=== PATIENT | male | born 1935 | race Caucasian/White ===

== ENCOUNTER 2018-05-12 05:18 | Observation (INO) | payer MEDICARE, OTHER ==
[2018-05-12 05:45] LABS: #Basophils 0.1 thou/uL (0.0-0.2); #Eosinphils 0.2 thou/uL (0.0-0.7); #Lymphocytes 2.5 thou/uL (1.20-3.40); #Monocytes 1.1 thou/uL (0.11-0.59); #Neutrophils 4.1 thou/uL (1.40-6.50); %Basophils 0.7 % (0.0-1.0); %Eosinophils 2.8 % (0.0-10.0); %Lymphocytes 31.7 % (21.0-51.0); %Monocytes 13.8 % (0.0-10.0); Hemoglobin 13.8 g/dL (14.0-18.0); Mean Corpuscular HGB CONC 33.2 g/dL (32.0-36.0); Mean Corpuscular Hemoglobin 34.5 pg (27.0-31.0); Mean Platelet Volume 7.7 fL (7.4-10.4); Platelet Count 160 thou/uL (130-400); RBC Distribution Width 12.3 % (11.5-14.5)
[2018-05-12 06:11] LABS: ALT (SGPT) 23 U/L (8-55); AST (SGOT) 25 U/L (5-34); Alkaline Phosphatase 149 U/L (40-150); Anion Gap 12 mmol/L (10-20); BUN (Urea Nitrogen) 23 mg/dL (8.4-25.7); Bilirubin, Total 0.5 mg/dL (0.2-1.2); Calc. Creatinine Clearance 0 mL/min (70-130); Calcium 9.3 mg/dL (7.8-10.44); Carbon Dioxide 35 mmol/L (23-31); Chloride 98 mmol/L (98-107); Estimated GFR-MDRD 14; Globulin 3.7 g/dL (2.4-3.5); Glucose 111 mg/dL (83-110); Potassium 4.2 mmol/L (3.5-5.1); Protein, Total 7.7 g/dL (5.8-8.1); Sodium 141 mmol/L (136-145)
[2018-05-12 06:28] LABS: CKMB 1.4 ng/mL (0-6.6)
[2018-05-12] MEDS ORDERED: Aspirin 325 MG TAB ONE (06:38)
[2018-05-12] MEDS ORDERED: Ondansetron PF 4 MG/2 ML Vial ONE (06:38)
--- NOTE | 2018-05-12 07:52 | RAD ---
FExam: Chest one view HISTORY:Chest pain Comparison: 08/27/2015 FINDINGS: Cardiac silhouette:Enlarged. Atherosclerosis of the aorta. Sternotomy wires are redemonstrated. Pulmonary vessels: Slightly prominent Costophrenic angles: Persistent blunting of the left costophrenic angle LUNGS: Patchy opacity in the left lung base. Pneumothorax: None Osseous abnormalities: None IMPRESSION: 1. Cardiomegaly. Atherosclerosis. 2. Presumed chronic left-sided pleural effusion with adjacent parenchymal changes.
[2018-05-12] MEDS ORDERED: Acetaminophen 325 MG TAB PO PRN ×2 (08:25→10:14)
[2018-05-12] MEDS ORDERED: Ondansetron PF 4 MG/2 ML Vial IVP PRN (08:25)
[2018-05-12] MEDS ORDERED: Ondansetron ODT 4 MG TAB PO PRN (08:25)
[2018-05-12 08:34] VITALS: BMI 31.9
[2018-05-12 09:41] LABS: Troponin I 0.069 ng/mL (< 0.028)
[2018-05-12] MEDS ORDERED: Dextrose 5% in Water 1,000 ML IV PRN (10:14)
[2018-05-12] MEDS ORDERED: Guaifenesin DM 100-10/5 ML UDCUP PO PRN (10:14)
[2018-05-12] MEDS ORDERED: Dextrose 50% Abboject 50 ML SYRINGE ONE (10:14)
[2018-05-12] MEDS ORDERED: HumaLOG 300 UNITS/3 ML VIAL SC PRN ×2 (10:14→11:03)
[2018-05-12] MEDS ORDERED: Dextrose 50% Abboject 50 ML SYRINGE SLOW IVP PRN (10:14)
[2018-05-12] MEDS ORDERED: Dextrose 5 % And 0.9 % NaCl 1,000 ML IV SCH (10:15)
[2018-05-12 11:49] VITALS: BP 159/69; TEMP 98.5
[2018-05-12] MEDS ORDERED: Sevelamer Carbonate 800 MG TAB PO SCH (12:00)
[2018-05-12] MEDS ORDERED: Nitroglycerin 2% Ointment 1 INCH/1 GM Packet TOP SCH (14:00)
--- NOTE | 2018-05-12 14:13 | SS ---
DATE OF ADMISSION: 05/12/2018 DATE OF DISCHARGE: REASON FOR ADMISSION: Chest pain. HISTORY OF PRESENTING ILLNESS: The patient gives history of having left-sided chest pain from last 2 days. These pains last for few seconds and have come nearly more than 10 times. As this was persistently coming off and on, the patient got concerned and hence came to emergency room. He initially thought it could be GERD, but the frequency worsened and hence came to emergency room. The patient follows up with Dr. Molina. Last stress test was more than 4 years ago. No complaints of palpitations, PND, or orthopnea. No cough or sputum production. No fever. He has had hemodialysis yesterday full session. PAST MEDICAL AND SURGICAL HISTORY: History of prior CVA with legal blindness. He cannot see in the left half of both eyes. Left hemianopsia. Sleep apnea on CPAP, hypertension, atrial fibrillation. End-stage renal disease on hemodialysis on Wednesday, Wednesday, and Wednesday. Right upper extremity fistula/dialysis access procedures, history of CHF with likely systolic dysfunction, peripheral neuropathy, dyslipidemia, CABG for 5-vessel disease done in the year 1999 in [place]. He has had 3 stents prior to having CABG. The patient has not had any cardiac catheterization after CABG. CURRENT MEDICATIONS: 1. Aspirin 81 mg p.o. daily. 2. Eliquis 2.5 mg p.o. twice daily. 3. Folic acid 0.4 mg p.o. daily. 4. Vitamin D3 of 2000 units p.o. daily. 5. Tresiba 60 units subcu q.p.m. 6. Pravastatin 80 mg p.o. at bedtime. 7. Sevelamer 800 mg p.o. 3 times daily. ALLERGIES: NO KNOWN DRUG ALLERGIES. PERSONAL HISTORY: Does not abuse alcohol or drugs. No history of smoking. Lives with his . Ambulates by himself. FAMILY HISTORY: Mother at the age of 46 years likely from cervical cancer and its complications. Father of brain cancer and its complications at the age of 67. CODE STATUS: Full. Power of assistant prosecuting attorney is his . REVIEW OF SYSTEMS: CONSTITUTIONAL: Negative for weight loss or gain, ability to conduct usual activities. SKIN: Negative for rash, itching. EYES: Negative for double vision, pain. ENT/MOUTH: Negative for nose bleeding, neck stiffness, pain, tenderness. CARDIOVASCULAR: Negative for palpitations, dyspnea on exertion, orthopnea. RESPIRATORY: Negative for shortness of breath, wheezing, cough, hemoptysis, fever or night sweats. GASTROINTESTINAL: Negative for poor appetite, abdominal pain, heartburn, nausea , vomiting, constipation, or diarrhea. GENITOURINARY: Negative for urgency, frequency, dysuria, nocturia. MUSCULOSKELETAL: Negative for pain, swelling. NEUROLOGIC/PSYCHIATRIC: Negative for anxiety, depression. ALLERGY/IMMUNOLOGIC: Negative for skin rash, bleeding tendency. PHYSICAL EXAMINATION: GENERAL: The patient is an 83-year-old male, who is currently not in any distress and is chest pain-free. VITAL SIGNS: Blood pressure 134/82, pulse 86 per minute, respiratory rate 18 per minute, temperature 98.3 degrees Fahrenheit, saturating 93% on room air. NECK: Supple. No elevated JVD. HEENT: Eyes; extraocular muscles intact. Pupils reacting to light. Oral cavity, mucous membranes are moist. No exudates or congestion. CARDIOVASCULAR SYSTEM: S1 and S2 heard. Irregular rhythm. RESPIRATORY SYSTEM: Air entry 1+ bilateral. No rales or rhonchi. ABDOMEN: Soft. Bowel sounds heard. No tenderness, rigidity, or guarding. EXTREMITIES: No peripheral edema or calf tenderness. VASCULAR SYSTEM: Peripheral pulses 1+ bilateral. No ischemic ulcerations or gangrene. CENTRAL NERVOUS SYSTEM: No gross focal deficits noted. The patient is alert, awake, and oriented well. The patient has left hemianopsia. PSYCHIATRIC SYSTEM: The patient's mood is euthymic. No hallucinations or delusions. LABORATORY DATA: EKG done shows atrial fibrillation at 86 beats per minute. There is nonspecific ST-T wave changes. White count of 8, H and H of 13 and 41, platelet count 160, MCV is 104 with 51% neutrophils. BUN 23, creatinine 4.1, serum bicarb 35. Troponin I is indeterminate, peaking up to 0.07. Albumin is 4.0. Chest x- ray done shows cardiomegaly with chronic left-sided pleural effusion. CLINICAL IMPRESSION AND PLAN: The patient will be under observation on telemetry for the chest pain to rule out acute coronary syndrome. The patient has had prior history of coronary artery bypass grafting for 5-vessel disease in the year 1999. His last stress test was more than 4 years back. We will obtain a nuclear stress test. The patient's indeterminate troponin is due to his end-stage kidney disease. He is currently chest pain-free at present. We will continue him on low-dose aspirin along with Eliquis, sevelamer, folic acid as before. The patient had a drop in his fingerstick glucose and has been placed on D5 normal saline until he finishes his stress test. Once he is done with stress test, he will be given a full meal. Echo with 2D Doppler for LV function will be obtained in view of his history of CHF. The patient is not clear what his ejection fraction is. He follows up regularly at Jesse's office. If the nuclear stress test is normal, will be discharging the patient today and he needs to follow up with Dr. Molina in 2 to 3 weeks. His next scheduled dialysis is tomorrow. If patient ends up staying here, we will consult Dr. Sanchez for the same. Addendum: stress test showed large scar over apex likely from prior insult, no reversible ischemia. I discussed his findings with in his office and he will f/u with him shortly. DC pt home. No arrhythmias except baseline afib was seen on telemetry. He likely will need his pacemaker interrogation when he f/u with . Job ID: [id number] [facility]
--- NOTE | 2018-05-12 15:30 | NM ---
NUCLEAR MEDICINE CARDIAC PERFUSION EXAMINATION WITH EJECTION FRACTION: HISTORY: 83-year-old male with chest pain. History of coronary artery disease status post CABG. TECHNIQUE: A single day nuclear medicine cardiac perfusion examination was performed. Rest images were obtained using 9 mCi of technetium-99m sestamibi. Stress images were obtained using 30 mCi of technetium-99m s estamibi and Adenosine. FINDINGS: There is a large size, severe intensity, fixed perfusion defect at the cardiac apex, consistent with a remote infarction. No obvious reversibility is seen. Gated images show apical dyskinesis with an ejection fraction of 44%. EDV: 130 mL LHR: 0.3 TID: 0.9 IMPRESSION: 1. No evidence of ischemia. 2. Remote infarction involving the anterior wall/apex. POS: TPC
[2018-05-12] MEDS ORDERED: ADENOSINE 60 MG/20 ML VIAL ONE (16:22)
[2018-05-12] MEDS ORDERED: Atorvastatin Calcium 20 MG TAB PO SCH (21:00)
[2018-05-12] MEDS ORDERED: Apixaban 2.5 MG TAB PO SCH (21:00)
[2018-05-12] MEDS ORDERED: Non-Formulary Item 1 EACH (Pravastatin Sodium [Pravastatin Sodium] 80 MG) PO SCH (21:00)
[2018-05-13] MEDS ORDERED: Non-Formulary Item 1 EACH (Folic Acid [Folic Acid] 0.4 MG) PO SCH (09:00)
[2018-05-13] MEDS ORDERED: Folic Acid 1 MG TAB PO SCH (09:00)
[2018-05-13] MEDS ORDERED: Aspirin 81 mg Enteric Coated Tablet PO SCH (09:00)
--- NOTE | 2018-05-17 13:18 | STRESS ---
Acquisition Time: 2018-05-12 13:18:42 Total Exercise Time: 00:04:00 Test Indications: CHEST PAIN Medications: Protocol: ADENOSINE Max HR: 104 BPM 75% of Pred: 138 BPM Max BP: 128/076 mmHG Max Work Load: 1.0 METS RESTING ECG: ATRIAL FIBRILLATION AT 76 BPM WITH POOR R-WAVE PROGRESSION, LOW VOLTAGE, OLD SEPTAL NH, AND RARE PVC'S SYMPTOMS: NONE NORMAL BP RESPONSE ECTOPY: RARE PVC'S ECG STRESS: NO SIGNIFICANT CHANGES INTERPRETATION: INDETERMINATE ECG/AWAIT NUCLEAR IMAGES FOR DEFINITIVE DIAGNOSIS Confirmed by ULISES PURDY ([id number]) on 05/17/2018 1:18:00 PM Referred By: MD Evaristo JO Confirmed By:ULISES PURDY
== END 2018-05-12 16:15 | disposition home or self-care (01) ==
LOC: ERS 05:18 → 2SW 08:07
PROVIDERS: ADMIT Internal Medicine; ATTEND Internal Medicine
DX: R07.9 Chest pain, unspecified (principal); I69.398 Other sequelae of cerebral infarction; H53.47 Heteronymous bilateral field defects; G47.30 Sleep apnea, unspecified; I48.91 Unspecified atrial fibrillation; E11.42 Type 2 diabetes mellitus with diabetic polyneuropathy; I25.10 Atherosclerotic heart disease of native coronary artery without angina pectoris; I13.2 Hypertensive heart and chronic kidney disease with heart failure and with stage 5 chronic kidney disease, or end stage renal disease; E11.22 Type 2 diabetes mellitus with diabetic chronic kidney disease; N18.6 End stage renal disease; I50.9 Heart failure, unspecified; I70.0 Atherosclerosis of aorta; Z79.01 Long term (current) use of anticoagulants; Z79.82 Long term (current) use of aspirin; Z79.899 Other long term (current) drug therapy; Z79.4 Long term (current) use of insulin; Z95.1 Presence of aortocoronary bypass graft; Z95.5 Presence of coronary angioplasty implant and graft; Z99.2 Dependence on renal dialysis; Z99.89 Dependence on other enabling machines and devices
CPT/HCPCS: 71045; 78452; 80053; 82553; 82962; 84484 ×2; 85025; 93005; 93017; 96374; 99285; A9500; 36415; 36416; J0153; J2405

== ENCOUNTER 2019-02-26 17:36 | Inpatient (IN) | payer MEDICARE, OTHER ==
[2019-02-26 18:21] LABS: Hemoglobin 12.7 g/dL (14.0-18.0); Mean Platelet Volume 8.5 fL (7.4-10.4); Platelet Count 133 thou/uL (130-400); Red Blood Cell (RBC) Count 3.62 mill/uL (4.70-6.10)
--- NOTE | 2019-02-26 18:24 | RAD ---
RADIOGRAPH CHEST 1 VIEW: DATE: 02/26/2019 TIME: 5:46 PM HISTORY: 83-year-old male with dyspnea COMPARISON: 05/12/2018 FINDINGS: Thickening of left pleural stripe and significant blunting of left lateral costophrenic angle, unchan ged. Adjacent pulmonary scarring at left mid, lower, and mid-upper lung zones. Sternotomy wires. Diffusely prominent interstitial markings bilaterally. No new consolidation or pneumothorax. No interval change. IMPRESSION: 1) chronic left pleural effusion or left pleural thickening, and extensive adjacent left pulmonary sc arring. 2) previous open-heart surgery. 3) no acute consolidation or pulmonary edema
[2019-02-26 18:39] LABS: #Basophils 0.1 thou/uL (0.0-0.2); #Eosinphils 0.1 thou/uL (0.0-0.7); #Lymphocytes 1.3 thou/uL (1.20-3.40); #Neutrophils 4.6 thou/uL (1.40-6.50); %Basophils 0.8 % (0.0-1.0); %Lymphocytes 17.9 % (21.0-51.0); %Monocytes 14.2 % (0.0-10.0); %Neutrophils 66.1 % (42.0-75.0); MDiff Complete? YES; Macrocytosis SLIGHT = 6-15 cells (100X) (0-5/hpf); Mean Corpuscular HGB CONC 33.2 g/dL (32.0-36.0); Mean Corpuscular Hemoglobin 35.1 pg (27.0-31.0); RBC Distribution Width 12.1 % (11.5-14.5); Rouleaux Formation SLIGHT = 1-5 cells (100X) (None Seen)
[2019-02-26 18:42] LABS: ALT (SGPT) 28 U/L (8-55); AST (SGOT) 38 U/L (5-34); Albumin 3.7 g/dL (3.4-4.8); Alkaline Phosphatase 138 U/L (40-110); Anion Gap 17 mmol/L (10-20); BUN (Urea Nitrogen) 47 mg/dL (8.4-25.7); Bilirubin, Total 0.5 mg/dL (0.2-1.2); Calc. Creatinine Clearance 0 mL/min (70-130); Calcium 9.3 mg/dL (7.8-10.44); Carbon Dioxide 20 mmol/L (23-31); Chloride 104 mmol/L (98-107); Estimated GFR-MDRD 9; Globulin 3.7 g/dL (2.4-3.5); Glucose 136 mg/dL (83-110); Potassium 4.4 mmol/L (3.5-5.1); Protein, Total 7.4 g/dL (5.8-8.1); Sodium 137 mmol/L (136-145)
[2019-02-26 19:04] LABS: CKMB 1.9 ng/mL (0-6.6)
[2019-02-26] MEDS ORDERED: Oseltamivir 75 MG CAP PO SCH (20:15)
[2019-02-26] MEDS ORDERED: Aspirin Chewable 81 MG TAB ONE (20:22)
[2019-02-26 21:22] VITALS: BMI 32.9
[2019-02-26] MEDS ORDERED: Ondansetron PF 4 MG/2 ML Vial IVP PRN (22:00)
[2019-02-26] MEDS ORDERED: Bisacodyl 5 MG TAB PO PRN (22:00)
[2019-02-26] MEDS ORDERED: Acetaminophen 325 MG TAB PO PRN (22:00)
[2019-02-26] MEDS ORDERED: Dextrose 5% in Water 1,000 ML IV PRN (22:02)
[2019-02-26] MEDS ORDERED: Dextrose 50% Abboject 50 ML SYRINGE SLOW IVP PRN (22:02)
--- NOTE | 2019-02-26 22:52 | HP ---
PRIMARY CARE PROVIDER: Presley Lanier MD CHIEF COMPLAINT: Cough. HISTORY OF PRESENT ILLNESS: Mr. Rivas is a pleasant 83-year-old gentleman, who was seen at [facility] on February 26, 2019. He has end-stage renal disease and has hemodialysis Wednesday, Wednesday, and Wednesday. He also received the influenza vaccine this year. Over the last 2 days, he has had cough with wheezing, no sputum. He also reports shortness of breath with exertion. He also reports decreased appetite. He denies any body aches or headache. He denies any chest pain or palpitations. He denies any nausea, vomiting. He presented to the emergency room because of above symptoms. REVIEW OF SYSTEMS: All systems were reviewed and found to be negative except for the pertinent positives mentioned above. PAST MEDICAL HISTORY: Atrial fibrillation, obstructive sleep apnea syndrome, on noninvasive positive pressure ventilation therapy; coronary artery disease, cerebrovascular accident, transient ischemic attack, peripheral neuropathy, hypertension, diabetes mellitus, insulin dependent, and end-stage renal disease on hemodialysis Wednesday, Wednesday, and Wednesday. PAST SURGICAL HISTORY: Dialysis shunt and coronary artery bypass surgery. SOCIAL HISTORY: No history of tobacco use, alcohol use, or recreational drug use. FAMILY HISTORY: No family history of premature coronary artery disease. CODE STATUS: I discussed his code status. He is full code. ALLERGIES: NO KNOWN DRUG ALLERGIES. CURRENT MEDICATIONS: 1. Aspirin 81 mg daily. 2. Eliquis 2.5 mg 2 times a day. 3. Levothyroxine 25 mcg daily. 4. Humalog insulin, Tresiba insulin, and folic acid 1 mg daily. PHYSICAL EXAMINATION: GENERAL: On examination, Mr. Rivas is awake and alert, not in acute distress. VITAL SIGNS: Blood pressure is 172/93, pulse 100, respiratory rate 24, and oxygen saturation 97% on room air. T-max in the emergency room was 100.8 degrees Fahrenheit. EYES: No scleral icterus, no conjunctival pallor. ENT: Moist mucosal membranes. No oropharyngeal erythema or exudates. NECK: Supple, nontender, trachea is midline. RESPIRATORY: Accessory muscles of breathing are not active. Chest wall movements are symmetric bilaterally. Lungs are clear to auscultation without wheeze, rhonchi, or crepitations. CARDIOVASCULAR: S1 and S2 are heard, regular. Peripheral pulses palpable. ABDOMEN: Soft, nontender, bowel sounds are heard. NEUROLOGIC: Cranial nerves 2 through 12 are intact. MUSCULOSKELETAL: Power is 5/5 in all 4 extremities. SKIN: No rashes or subcutaneous nodules. LYMPHATIC: No cervical lymphadenopathy. PSYCHIATRIC: Normal mood, normal affect, the patient is oriented to person, place, and time. LABORATORY DATA: Mr. Rivas's labs and investigations were reviewed. He has normal white count, macrocytic anemia with hemoglobin 12.7, normal platelet count, normal sodium, normal potassium, elevated blood urea nitrogen of 47, elevated creatinine of 6.07, indeterminate troponin I of 0.140 and elevated BNP of 467.1. AST is elevated at 38 and alkaline phosphatase is elevated at 138. Influenza screen is positive for influenza A antigen. ASSESSMENT AND PLAN: Mr. Rivas is a pleasant 83-year-old gentleman, who was seen at [facility] on February 26, 2019. His problem list includes: 1. Sepsis: Mr. Rivas is presenting with sepsis secondary to influenza infection. He will be admitted to the hospital for further management. 2. Influenza A infection: The patient has been started on Tamiflu, which I will continue. 3. End-stage renal disease, on dialysis: We will consult Nephrology Service for maintenance dialysis. 4. Diabetes mellitus: We will continue insulin, start Accu-Cheks, and insulin sliding scale. 5. Atrial fibrillation: Continue Eliquis. Many thanks for allowing me to participate in your patient's care. Please feel free to contact me with any questions or concerns. LEVEL OF RISK: Moderate. LEVEL OF COMPLEXITY: Moderate. Job ID: [id number]
[2019-02-27 00:54] LABS: Troponin I 0.156 ng/mL (< 0.028)
[2019-02-27 04:21] LABS: Bilirubin Negative (Negative); Blood, Urine 1+ (Negative); Clarity Clear (Clear); Glucose, Urine (Dipstick) 200 mg/dL (Negative); Leukocyte Negative Leu/uL (Negative); Nitrite Negative (Negative); Protein, Urine (Dipstick) 100 mg/dL (Neg-Trace); Squamous Epithelial 0-3 HPF (0-3); Urobilinogen Normal mg/dL (Less than 2); WBC/HPF 0-3 HPF (0-3)
[2019-02-27 04:28] LABS: Bacteria/HPF Rare-Few HPF (None Seen)
[2019-02-27 05:27] LABS: Anion Gap 17 mmol/L (10-20); BUN (Urea Nitrogen) 50 mg/dL (8.4-25.7); Band 6 % (5-11); Calc. Creatinine Clearance 13 mL/min (70-130); Calcium 8.6 mg/dL (7.8-10.44); Carbon Dioxide 19 mmol/L (23-31); Chloride 105 mmol/L (98-107); Estimated GFR-MDRD 9; Glucose 164 mg/dL (83-110); Hemoglobin 11.7 g/dL (14.0-18.0); Lymphocytes 23 % (21-51); MDiff Complete? YES; Mean Corpuscular HGB CONC 32.5 g/dL (32.0-36.0); Mean Corpuscular Hemoglobin 34.3 pg (27.0-31.0); Mean Platelet Volume 8.1 fL (7.4-10.4); Monocytes 12 % (0-10); Neutrophil 59 % (42-75); Platelet Count 124 thou/uL (130-400); Potassium 4.6 mmol/L (3.5-5.1); RBC Distribution Width 12.2 % (11.5-14.5); Red Blood Cell (RBC) Count 3.41 mill/uL (4.70-6.10); Sodium 136 mmol/L (136-145); White Blood Cell (WBC) Count 7.6 thou/uL (4.8-10.8)
[2019-02-27] MEDS ORDERED: Nitroglycerin 0.4 MG TAB (25 Tab Bottle) PO PRN (07:20)
[2019-02-27] MEDS ORDERED: Folic Acid 1 MG TAB PO SCH (09:00)
[2019-02-27] MEDS ORDERED: Oseltamivir 75 MG CAP PO SCH (09:00)
--- NOTE | 2019-02-27 09:21 | CON ---
DATE OF CONSULTATION: HISTORY OF PRESENT ILLNESS: Mr. Rivas is an 83-year-old white male with ESRD and on maintenance hemodialysis, was admitted for persistent cough. He was found to have a flu infection. He was also noted to have a mildly elevated troponin I; for that reason, was admitted for further observation. We are consulted for management of his ESRD. REVIEW OF SYSTEMS: Positive for a cough, question evgeny of fever. No nausea. No vomiting. He has some mild shortness of breath on exertion. Appetite and energy level are decreased. No syncopal episode. No nausea. No vomiting. No diarrhea. No constipation. No productive cough. No chest pain. No palpitation. PAST MEDICAL HISTORY: Chronic AFib; obstructive sleep syndrome, on CPAP; coronary artery disease; ESRD, on maintenance hemodialysis, status post CVA; peripheral neuropathy; hypertension; type 2 diabetes mellitus. PAST SURGICAL HISTORY: The patient is status post AV fistula placement, status post cuffed hemodialysis catheter placement, status post cardiac cath, status post skin graft, status post CABG, status post right shoulder surgery for dislocated right shoulder joint, status post bilateral cataract surgery, and status post colonoscopy. 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 No history of smoking. Education, high school. Status post multiple blood transfusion. No alcohol. No IV drug abuse. FAMILY HISTORY: No family history of ESRD. ALLERGIES: NONE. TRAUMA: Status post right shoulder dislocation. IMMUNIZATION: Up-to-date. HOSPITALIZATIONS: Please see past medical history. PHYSICAL EXAMINATION: VITAL SIGNS: Blood pressure 121/66, heart rate 97, respiratory rate 14, temperature 98.5, and pulse ox 91%. GENERAL: The patient is awake, alert, comfortable, not in overt distress. SKIN: Adequate turgor. HEENT: He has pinkish conjunctivae. Anicteric sclerae. NECK: No neck mass. No carotid bruits. No JVD. CHEST: No deformities. LUNGS: Decreased breath sounds. HEART: Normal sinus rhythm. No murmur. No gallops. No rubs. ABDOMEN: Globular, soft, and nontender. No masses. EXTREMITIES: No edema. No deformities. NEUROLOGICAL: Moving all extremities. No tremors. No asterixis. No ataxia. MEDICATIONS: Medications of February 27, 2019; 1. Eliquis 2.5 mg p.o. b.i.d. 2. Aspirin 81 mg tab/day. 3. Atorvastatin 80 mg at bedtime. 4. Vitamin D 2000 International Units daily. 5. Fish oil 2 g p.o. daily. 6. Folic acid 1 mg daily. 7. DuoNeb q.4 p.r.n. 8. Insulin glargine 40 units subcu at bedtime. 9. Tamiflu 75 mg p.o. b.i.d. LABORATORY DATA: Laboratories of February 27, 2019, showed a white count of 7.6, hemoglobin of 11.7, sodium of 136, potassium of 4.6, chloride of 105, carbon dioxide of 19, BUN of 50, creatinine of 6.29, calcium of 8.6, and troponin I 0.156. DIAGNOSTIC DATA: Chest x-ray of February 26, 2019, showed chronic left pleural effusion, no pulmonary edema. ASSESSMENT/PLAN: 1. Influenza infection - currently on Tamiflu. Continue supportive care. The patient did receive a flu vaccine a few months ago. 2. End-stage renal disease, stable. We will continue current hemodialysis regimen. Fluid removal as tolerated by the patient. Review of his last kt/V suggests he is adequately dialyzed with the current dialysis regimen. 3. Type 2 diabetes mellitus. Continue current insulin regimen. Job ID: [id number] [facility]
[2019-02-27] MEDS ORDERED: Budesonide 0.5 MG/2 ML NEB INH SCH (09:30)
[2019-02-27] MEDS ORDERED: Folic Acid/Vit B Comp W-C PO SCH (10:15)
[2019-02-27 10:43] LABS: ALV-art Gradient 65.665 (0-20); Actual Bicarbonate (HCO3a) 27.2 mEq/L (22-28); Base Excess (BEa) 2.5 mEq/L (-2.0 to +3.0); CO2 Tension 42.3 mmHg (35.0-45.0); Calcium, Ionized 1.12 mmol/L (1.12-1.30); Carboxyhemoglobin (COHb) 1.3 gm% (0.0-3.0); O2 Tension (PaO2) 81.1 mmHg (> 60.0); Potassium - ABG Lab 3.88 mmol/L (3.70-5.30); Puncture Site RRA; pH, Arterial 7.43 (7.35-7.45)
[2019-02-27] MEDS: Ipratropium Bromide 2.5 ml Neb NEB SCH ×4 (10:46→22:29)
--- NOTE | 2019-02-27 10:47 | PDOC.PULCN ---
Pulmonology Consult: HPI - Date of Consult Date: 02/27/19 Time: 10:40 - Consult Details Reason for Consult: O2 desaturation acute hypoxic respiratory failure reuiring bipap Requesting Physician: Dr. Epps - History of Present Illness HPI: ARMIDA DILLON is a 83 year-old M with Afib, CHRISTOPHER, ESRD on HD, IDDM2, CAD, CVA who presented to the ER for cough, SOB. He was found to be flu A and admitted for sepsis 2/2 influenza. This morning he was found to have low peripheral O2 saturation in the 80s and was sent over to dialysis to alleviate fluid overload. He started becoming tachypneic and RT was called and he was started on BiPap. Patient is breathing easy in the room on Bipap and reports he feels much better. Denies other current symptoms at this time. Pulmonology Consult: ROS - Review of Systems ROS unobtainable: other Cardiovascular: negative: chest pain, palpitations Respiratory: short of breath. negative: cough, productive cough, wheezing Pulmonology Consult: H Source: patient, nurse Past Medical History: Afib, CHRISTOPHER on noninvasive PPV, CAD, CVA, TIA, peripheral neuropathy, HTN, DM2 on insulin, ESRD on HD - Social History Smoking Status: Never smoker Alcohol Use: none Drug Use History: none Pulmonology Consult: Meds - Medications Medications: Current Medications Acetaminophen (Tylenol) 1,000 mg PO Q6HR PRN PRN Reason: Pain Acetaminophen (Tylenol) 650 mg PO Q4H PRN PRN Reason: Headache/Fever/Mild Pain (1-3) Apixaban (Eliquis) 2.5 mg PO BID ADONAY Aspirin (Ecotrin) 81 mg PO DAILY ADONAY Atorvastatin Calcium (Lipitor) 80 mg PO HS ADONAY Bisacodyl (Dulcolax) 10 mg PO DAILYPRN PRN PRN Reason: Constipation Budesonide (Pulmicort Neb Solution) 0.5 mg INH BID-RT ADONAY Budesonide (Pulmicort Neb Solution) 0.5 mg INH NOW ADONAY Stop: 02/27/19 12:00 Last Admin: 02/27/19 10:32 Dose: 0.5 mg Cholecalciferol (Vitamin D3) 2,000 units PO DAILY [facility] Dextrose/Water (Dextrose 50%) 25 gm SLOW IVP PRN PRN PRN Reason: Hypoglycemia Diltiazem HCl (Cardizem) 30 mg PO Q6HR PRN PRN Reason: HR >120 sustained Fish Oil (Fish Oil) 2 mg PO DAILY [facility] Glucagon (Glucagon) 1 mg IM PRN PRN PRN Reason: Hypoglycemia Dextrose/Water (D5w) 1,000 mls @ 0 mls/hr IV .Q0M PRN PRN Reason: Hypoglycemia Insulin Glargine 40 units/ (Miscellaneous Medication) 0.4 mls @ 0 mls/hr SC HS ADONAY Cefepime HCl 1 gm/ Sodium (Chloride) 100 mls @ 200 mls/hr IVPB 1100 ADONAY Insulin Human Lispro (Humalog) 0 units SC .MILD SLIDING SCALE PRN PRN Reason: Mild Correctional Scale Ipratropium Wheeler (Atrovent) 2.5 ml NEB [id number] [facility] Miscellaneous Medication (Pharmacy To Dose) 1 each PO PRN PRN PRN Reason: Pharmacy to dose Nitroglycerin (Nitrostat) 0.4 mg PO Q5MIN PRN PRN Reason: Chest Pain Ondansetron HCl (Zofran) 4 mg IVP Q6H PRN PRN Reason: Nausea/Vomiting Oseltamivir Phosphate (Tamiflu) 30 mg PO 1200 ADONAY Stop: 03/03/19 12:01 Vitamin B Complex/Vit C/Folic Acid (Nephro-Rodney Tablet) 1 tab PO DAILY [facility] Vitamin B Complex/Vit C/Folic Acid (Nephro-Rodney Tablet) 1 tab PO NOW [facility] Stop: 02/27/19 12:00 - Allergies Allergies/Adverse Reactions: Allergies Allergy/AdvReac Type Severity Reaction Status Date / Time No Known Allergies Allergy Verified 12/23/15 15:09 Pulmonology Consult: PE - Physical Exam Constitutional: NAD Deviation from normal: bipap present HEENT: PERRLA, moist MMs, sclera anicteric Neck: no JVD Cardiovascular: no significant murmur Deviation from normal: tachycarid Focused Respiratory Location: decreased breath sounds: Right, Left Deviation from normal: tachpneic, crackles bilaterally Gastrointestinal: soft, non-tender, no distention Musculoskeletal: no edema Neurological: non-focal, moves all 4 limbs Pulmonology Consult: Results - Labs Result Diagrams: 02/27/19 04:20 02/27/19 04:20 - ABG Interpretation ABG Results: ABG pH 7.43 (7.35-7.45) 02/27/19 10:39 ABG pCO2 42.3 mmHg (35.0-45.0) 02/27/19 10:39 ABG O2 Sat Calc/Kay 95.4 % (94.0-98.0) 02/27/19 10:39 ABG Base Excess 2.5 mEq/L (-2.0 to +3.0) 02/27/19 10:39 - Radiology Interpretation Chest x-ray Status: image reviewed by me, report reviewed by me Additional comments: left chronic pleural effusion Pulmonology Consult: A/P - Problem (1) Acute respiratory failure with hypoxia Current Visit: Yes Code(s): J96.01 - ACUTE RESPIRATORY FAILURE WITH HYPOXIA Status: Acute (2) Influenza A Current Visit: Yes Code(s): J10.1 - FLU DUE TO OTH IDENT INFLUENZA VIRUS W OTH RESP MANIFEST Status: Acute (3) Dialysis patient Current Visit: No Code(s): Z99.2 - DEPENDENCE ON RENAL DIALYSIS Status: Acute - Time Time: 50% of the time was spent in coordination of care (as documented) at patient's floor/unit and/or counseling patient. Time with Patient: greater than 50 minutes - Plan Plan: 83 yo M with multiple medical comorbidities including ESRD on HD admitted for sepsis 2/2 influenza 1. Acute hypoxic resp. failure 2/2 fluid overload- Stable on Bipap. Currently undergoing HD. Will reassess after HD. 2. Sepsis 2/2 influenza- stable. Continue tamiflu and supportive care 3. HTN-PRN antihypertensives 4. CHRISTOPHER requiring non invasive PPV 5. ESRD on HD- nephrology following 6. CAD with h/o of CABG-continue ASA and eliquis 7. Hypothyroidism- continue home synthroid 8. IDDM2- Continue insulin regimen 9. Hx of CVA- continue eliquis dvt ppx: eliquis abx: none antiviral: tamiflu procedures: MWF Hemodialysis Discussed with Dr. Diaz Have seen and examined the patient personally. Patient was noted to be in respiratory distress during HD today. Has responded well to BiPAP so far. Currently receiving HD in [facility]. Expect that he can come off BiPAP after HD, since working diagnosis is that his respiratory failure is due to fluid overload. Boris Diaz MD above encompassed 50 minutes time.
[2019-02-27] MEDS ORDERED: Cefepime 1 GM in Sodium Chloride 0.9% 100 ML IVPB SCH (11:00)
--- NOTE | 2019-02-27 11:12 | RAD ---
Portable frontal chest radiograph: 02/27/2019 COMPARISON: 02/26/2019 HISTORY: Shortness of breath, hypoxia FINDINGS: Midline sternotomy wires are noted. Heart and mediastinal contours are stable. There is dif fuse nonspecific increased linear interstitial density, unchanged when compared to the prior exam. This likely represents a combination of chronic change and acute interstitial edema. There is new haz y focal opacity in the right upper lobe region. There is stable pleural thickening/pleural fluid seen laterally within the left hemithorax with associated blunting of left costophrenic angle. IMPRESSION: Findings suggesting acute on chronic interstitial opacity as detailed above. There is sli ght interval worsening of right upper lobe aeration. Persistent pleural and parenchymal opacity in the left base noted. Follow-up imaging following treatment advised.
[2019-02-27] MEDS: Acetaminophen 500 MG TAB PO PRN (14:03)
[2019-02-27] MEDS: Oseltamivir 6 MG/ML ORAL SUSP PO SCH (14:03)
[2019-02-27] MEDS: Fish Oil 1,000 MG CAP PO SCH (14:08)
[2019-02-27] MEDS: Aspirin 81 mg Enteric Coated Tablet PO SCH (14:08)
[2019-02-27] MEDS: Apixaban 2.5 MG TAB PO SCH ×2 (14:08→23:46)
--- NOTE | 2019-02-27 15:51 | CON ---
DATE OF CONSULTATION: 02/27/2019 PRIMARY CATH LAB RADIOLOGICAL TECHNOLOGIST: Tl Molina MD REASON FOR CONSULTATION: Shortness of breath, congestive heart failure, end-stage renal disease, and chronic atrial fibrillation. HISTORY OF PRESENT ILLNESS: Mr. Rivas is an 83-year-old man. He underwent coronary artery bypass grafting in the year 1999. The patient was seen here in 2015, at which time, he had PVCs, ventricular bigeminy, and was seen and evaluated at that time. An echocardiogram done in August of 2015 revealed the ejection fraction to be technically difficult limited study with suboptimal images. Ejection fraction was estimated at 35% to 40%. The patient has been followed by Dr. Molina since then. The patient has developed end-stage renal disease and also has persistent atrial fibrillation. The patient had respiratory failure, had to be transferred to an intermediate care unit, where he is on BiPAP. He is also receiving hemodialysis. MEDICATIONS: At home; 1. Apixaban 2.5 mg twice a day. 2. Aspirin 81 mg a day. 3. Pravastatin. 4. Folic acid. ALLERGIES: NONE KNOWN. SOCIAL HISTORY: His is in the room. She is indicating to me that the patient has been doing well up until recently when he developed the influenza. REVIEW OF SYSTEMS: Not obtainable, he is on the CPAP. PHYSICAL EXAMINATION: GENERAL: This is a pleasant elderly gentleman, looks somewhat frail. VITAL SIGNS: Blood pressure 130/70 and pulse is 80 to 100s and it is irregular. HEENT: Eyes, sclerae nonicteric. Mouth, mucous membranes moist. NECK: Supple. No lymphadenopathy. LUNGS: Clear. CARDIAC: Irregularly irregular. ABDOMEN: Soft and nontender. EXTREMITIES: No clubbing or cyanosis. There is [id number] peripheral edema. PERTINENT LABORATORY DATA: Hemoglobin is 11.7. Creatinine is 6.29 and potassium is 4.6. Chest x-ray, thought to represent chronic interstitial edema with acute interstitial edema. EKG reveals atrial fibrillation, it is also a narrow complex tachycardia with a different axis, it is probably SVT 21 beats. ASSESSMENT: 1. End-stage renal disease. 2. Volume overload. 3. Sepsis due to influenza. 4. Respiratory failure. 5. Chronic atrial fibrillation. 6. History of PVCs. PLAN: 1. He is going to undergo an urgent hemodialysis. 2. Echocardiogram. 3. We will probably need low-dose beta-blockers. 4. We will ask them to call Dr. Molina's office to get recent notes. Job ID: [id number]
[2019-02-27] MEDS ORDERED: INSULIN DEGLUDEC 60 UNIT SQ SCH (18:00)
[2019-02-27] MEDS ORDERED: Insulin Glargine 60 UNITS in Pre-Filled Syringe 1 EACH SC SCH (18:00)
[2019-02-27] MEDS: Budesonide 0.5 MG/2 ML NEB INH SCH (19:36)
[2019-02-27] MEDS: Doxycycline 100 MG CAP PO SCH (21:29)
[2019-02-27] MEDS: Atorvastatin Calcium 40 MG TAB PO SCH (21:29)
[2019-02-27] MEDS: Insulin Glargine 40 UNITS in Pre-Filled Syringe 1 EACH SC SCH (21:31)
[2019-02-28] MEDS: Ipratropium Bromide 2.5 ml Neb NEB SCH ×6 (02:02→22:14)
[2019-02-28 04:00] LABS: #Lymphocytes 1.3 thou/uL (1.20-3.40); #Neutrophils 7.2 thou/uL (1.40-6.50); %Basophils 0.2 % (0.0-1.0); %Eosinophils 0.1 % (0.0-10.0); %Lymphocytes 13.5 % (21.0-51.0); %Monocytes 10.6 % (0.0-10.0); %Neutrophils 75.7 % (42.0-75.0); Hemoglobin 11.8 g/dL (14.0-18.0); Mean Corpuscular HGB CONC 33.3 g/dL (32.0-36.0); Mean Corpuscular Hemoglobin 34.7 pg (27.0-31.0); Mean Platelet Volume 8.2 fL (7.4-10.4); Platelet Count 122 thou/uL (130-400); RBC Distribution Width 12.2 % (11.5-14.5); Red Blood Cell (RBC) Count 3.39 mill/uL (4.70-6.10); White Blood Cell (WBC) Count 9.5 thou/uL (4.8-10.8)
[2019-02-28 04:27] LABS: ALT (SGPT) 26 U/L (8-55); AST (SGOT) 44 U/L (5-34); Albumin 3.4 g/dL (3.4-4.8); Alkaline Phosphatase 124 U/L (40-110); Anion Gap 15 mmol/L (10-20); BUN (Urea Nitrogen) 34 mg/dL (8.4-25.7); Bilirubin, Total 0.5 mg/dL (0.2-1.2); Calc. Creatinine Clearance 17 mL/min (70-130); Calcium 8.5 mg/dL (7.8-10.44); Carbon Dioxide 27 mmol/L (23-31); Chloride 97 mmol/L (98-107); Estimated GFR-MDRD 12; Globulin 3.6 g/dL (2.4-3.5); Glucose 217 mg/dL (83-110); Potassium 4.1 mmol/L (3.5-5.1); Sodium 135 mmol/L (136-145)
[2019-02-28] MEDS: Acetaminophen 500 MG TAB PO PRN (04:32)
--- NOTE | 2019-02-28 06:53 | PDOC.HOSPP ---
- Subjective Encounter Date: 02/27/19 Encounter Time: 09:50 Subjective: Patient seen and examined for gen weakness/Flu during dialysis. Feels gen weak. Moderate SOB with dry cough. No CP/palpitations. No overnight events - Objective Vital Signs & Weight: Vital Signs (12 hours) Temp Pulse Resp Pulse Ox 02/28/19 03:51 101.1 F H 02/28/19 02:02 89 32 H 02/28/19 00:00 101.1 F H 02/27/19 22:30 98 28 H 100 02/27/19 22:29 85 30 H 100 02/27/19 20:00 100 02/27/19 19:55 101.5 F H 02/27/19 19:36 90 24 H 100 Weight Weight 222 lb 12.8 oz Most Recent Monitor Data Heart Rate from ECG 95 NIBP 152/81 NIBP BP-Mean 104 Respiration from ECG 33 SpO2 100 I&O: 02/26/19 02/27/19 02/28/19 06:59 06:59 06:59 Intake Total 240 480 Output Total 250 2200 Balance -10 -1720 Result Diagrams: 02/28/19 03:22 02/28/19 03:22 Additional Labs: Accuchecks 02/28/19 02/27/19 02/27/19 05:56 20:16 16:41 POC Glucose 173 H 223 H 162 H Radiology Reviewed by me: Yes (CXR - ? Pneumonia) EKG Reviewed by me: Yes (Afib) Hospitalist ROS - Review of Systems Cardiovascular: reports: orthopnea. denies: chest pain, palpitations, paroxysmal noc. dyspnea, edema, light headedness, other Gastrointestinal: denies: nausea, vomiting, abdominal pain, diarrhea, constipation, melena, hematochezia, other - Medication Medications: Active Medications Generic Name Dose Route Start Last Admin Trade Name Freq PRN Reason Stop Dose Admin Acetaminophen 1,000 mg 02/26/19 22:02 02/28/19 04:32 Tylenol PO 1,000 mg Q6HR PRN Administration Pain Acetaminophen 650 mg 02/26/19 22:00 02/27/19 21:29 Tylenol PO 650 mg Q4H PRN Administration Headache/Fever/Mild Pain (1-3) Apixaban 2.5 mg 02/27/19 09:00 02/27/19 23:46 Eliquis PO 2.5 mg BID ADONAY Administration Aspirin 81 mg 02/27/19 09:00 02/27/19 14:08 Ecotrin PO Not Given DAILY ADONAY Atorvastatin Calcium 80 mg 02/27/19 21:00 02/27/19 21:29 Lipitor PO 80 mg HS ADONAY Administration Budesonide 0.5 mg 02/27/19 18:30 02/27/19 19:36 Pulmicort Neb Solution INH 0.5 mg BID-RT ADONAY Administration Cholecalciferol 2,000 units 02/27/19 09:00 02/27/19 14:08 Vitamin D3 PO Not Given DAILY ADONAY Doxycycline Hyclate 100 mg 02/27/19 21:00 02/27/19 21:29 Vibramycin PO 100 mg BID ADONAY Administration Fish Oil 2 mg 02/27/19 09:00 02/27/19 14:08 Fish Oil PO Not Given DAILY ADONAY Insulin Glargine 40 units/ 0.4 mls @ 0 mls/hr 02/27/19 21:00 02/27/19 21:31 Miscellaneous Medication SC 0.4 mls HS ADONAY Administration Ipratropium [place] 2.5 ml 02/27/19 10:30 02/28/19 02:02 Atrovent NEB 2.5 ml [id number] ADONAY Administration Oseltamivir Phosphate 30 mg 02/27/19 12:00 02/27/19 14:03 Tamiflu PO 03/03/19 12:01 30 mg 1200 ADONAY Administration - Exam General Appearance: ill appearing General - other findings: Moderate resp distress Heart: no gallops, no rubs, normal peripheral pulses, irregular Respiratory: no rales, normal chest expansion, rhonchi, wheezes Gastrointestinal: soft, non-tender, normal bowel sounds, no guarding, no rigidity Extremities: no cyanosis, no clubbing Neurological: no new deficit Psychiatric: normal affect, A&O x 3 Hosp A/P - Plan Acute hypoxic resp failure Severe Sepsis due to Influenza A (POA) ESRD on HD with volume overload Chr Afib - on Eliquis CHRISTOPHER on CPAP Obesity BMI 32.9 DM2 Type 2 [place] - POA - resolved PLAN: Transfer to [facility] for NIPPV Cont Tamiflu - adjust dose for renal function Add Cefepime - adjust dose for renal function Add Nebs/Pulmicort Reduce Lantus to 40 units HS Cont sliding scale Cont other meds AM labs
[2019-02-28] MEDS: HumaLOG 300 UNITS/3 ML VIAL SC PRN ×2 (07:07→17:01)
--- NOTE | 2019-02-28 07:41 | RAD ---
EXAM: Single view of the chest HISTORY: Shortness of breath COMPARISON: 02/27/2019 FINDINGS: Single view of the chest shows an enlarged but stable cardiomediastinal silhouette. The pa tient is status post sternotomy. Increased interstitial markings are seen. There is a small stable left pleural effusion. The bones are unremarkable. IMPRESSION: Stable exam
[2019-02-28] MEDS: Budesonide 0.5 MG/2 ML NEB INH SCH ×2 (07:48→18:18)
--- NOTE | 2019-02-28 08:47 | PRG ---
DATE OF SERVICE: 02/28/2019 SUBJECTIVE: The patient is feeling better. He came off the BiPAP this morning without much difficulty. OBJECTIVE: VITAL SIGNS: His temperature is 99.3, but has been as high as 101.5, pulse 95, blood pressure 152/81, O2 saturation 100%. HEENT: Unremarkable. NECK: No adenopathy or JVD. LUNGS: Coarse rhonchi. CARDIAC: S1, S2. Regular. ABDOMEN: Soft. EXTREMITIES: No edema. IMAGING: Chest x-ray demonstrates chronic left pleural effusion. LABORATORY DATA: White blood cell count 9.5, hematocrit 35.3, and platelet count 122. Sodium 135, potassium 4.1, chloride 97, CO2 of 27, BUN 34, creatinine 4.7, glucose 217. ASSESSMENT: 1. Influenza. 2. Chronic renal failure, requiring hemodialysis. PLAN: 1. Continue the Tamiflu. 2. BiPAP at night for treatment of his CHRISTOPHER, hopefully can hold the BiPAP during the day. 3. Stop antibiotics if 48 hour cultures are negative. Job ID: [id number]
--- NOTE | 2019-02-28 09:06 | PRG ---
DATE OF SERVICE: 02/28/2019 HOSPITAL COURSE: Mr. Rivas is sitting up in bed. He is eating breakfast. No complaints. No chest pain or pressure. OBJECTIVE: VITAL SIGNS: The blood pressure most recently recorded as is 130/70, there was another of 152/80. Pulse is in the 80s, it is atrial fibrillation. LUNGS: Clear. CARDIAC: Irregularly irregular. ASSESSMENT: 1. Congestive heart failure, systolic, diastolic, mixed, improved, appears to have worsened due to the fluid, but he is better now. 2. End-stage renal disease, on maintenance hemodialysis. 3. Chronic atrial fibrillation. PLAN: 1. He is on Eliquis. 2. Atorvastatin and aspirin due to coronary artery disease. Job ID: [id number]
--- NOTE | 2019-02-28 09:09 | PRG ---
DATE OF SERVICE: 02/28/2019 SUBJECTIVE: Mr. Rivas is an 83-year-old white male with history of ESRD, on maintenance hemodialysis. He was initially admitted for an influenza infection. During dialysis yesterday, he went into acute respiratory distress. He was transferred to MICU for further management. He was temporally placed on a BiPAP. We continued the hemodialysis with fluid removal. The shortness of breath may be a reflection of increased lung volumes/pulmonary edema. This morning, he is feeling better. He is off his BiPAP. He is eating well. No complaints of chest pain or shortness of breath. OBJECTIVE: VITAL SIGNS: Blood pressure is noted at 152/81 with a heart rate of 79, respiratory rate 22, and pulse ox is 99%. GENERAL: Noted to be awake, alert, comfortable, not in distress, sitting. HEENT: He has a pinkish conjunctivae. Anicteric sclerae. NECK: No neck mass. No carotid bruits. No JVD. CHEST: No deformities. LUNGS: Clear breath sounds. No wheezing. No crackles. HEART: Normal sinus rhythm. No murmur. No gallops. No rubs. ABDOMEN: Globular, soft, nontender. No masses. EXTREMITIES: No edema, no deformities. NEUROLOGIC: The patient has decreased visual activity. MEDICATIONS: Medications of February 28, 2019, was reviewed. LABORATORY DATA: Laboratories of February 28, 2019, white count 9.5, hemoglobin 11.8. Sodium 135, potassium 4.1, chloride 97, carbon dioxide 27, BUN 34, creatinine 4.73, glucose 217, calcium 8.5. AST 44, ALT 26, albumin 3.4. IMAGING: Chest x-ray of February 28, 2019, showed increased lung markings. ASSESSMENT AND PLAN: 1. Shortness of breath-secondary to superimposed congestive heart failure. Fluid removal with dialysis was done, feeling much better. 2. Endstage renal disease, stable. We will continue current Wednesday, Wednesday, and Wednesday hemodialysis regimen. No changes will be made with the current dialysis regimen. There is no indication for any emergency dialysis today. 3. Influenza-continue supportive management. Job ID: [id number]
[2019-02-28] MEDS: Doxycycline 100 MG CAP PO SCH ×2 (09:37→21:37)
[2019-02-28] MEDS: Apixaban 2.5 MG TAB PO SCH ×2 (09:37→21:37)
[2019-02-28] MEDS: Aspirin 81 mg Enteric Coated Tablet PO SCH (09:38)
[2019-02-28] MEDS: Folic Acid/Vit B Comp W-C PO SCH (09:38)
[2019-02-28] MEDS: Fish Oil 1,000 MG CAP PO SCH (09:38)
[2019-02-28] MEDS ORDERED: Cefepime 0.5 GM in Sodium Chloride 0.9% 100 ML IVPB SCH ×2 (11:00→16:00)
[2019-02-28] MEDS: Oseltamivir 6 MG/ML ORAL SUSP PO SCH (13:13)
[2019-02-28] MEDS: Insulin Glargine 40 UNITS in Pre-Filled Syringe 1 EACH SC SCH (21:37)
[2019-02-28] MEDS: Atorvastatin Calcium 40 MG TAB PO SCH (21:37)
--- NOTE | 2019-02-28 23:51 | PDOC.HOSPP ---
- Subjective Encounter Date: 02/28/19 Encounter Time: 15:30 Subjective: Patient seen and examined for Sepsis. Feeling better. SOB improving. On NIPPV PRN and HS. No new complaints. No overnight events - Objective Vital Signs & Weight: Vital Signs (12 hours) Temp Pulse Resp Pulse Ox 02/28/19 22:14 82 26 H 100 02/28/19 22:13 78 26 H 100 02/28/19 19:42 99.6 F 02/28/19 18:18 80 16 99 02/28/19 18:16 80 16 99 02/28/19 16:55 99.3 F 02/28/19 15:38 97.3 F L 02/28/19 15:17 81 28 H 98 02/28/19 11:55 96.3 F L Weight Weight 223 lb Most Recent Monitor Data Heart Rate from ECG 85 NIBP 125/66 NIBP BP-Mean 85 Respiration from ECG 28 SpO2 97 I&O: 02/27/19 02/28/19 03/01/19 06:59 06:59 06:59 Intake Total 240 480 Output Total 250 2200 Balance -10 -1720 Result Diagrams: 03/01/19 03:51 03/01/19 03:51 Additional Labs: Accuchecks 02/28/19 02/28/19 02/28/19 20:14 16:55 10:44 POC Glucose 213 H 310 H 235 H 02/28/19 05:56 POC Glucose 173 H Radiology Reviewed by me: Yes (CXR - improvement) EKG Reviewed by me: Yes (Tele Afib) Hospitalist ROS - Review of Systems Respiratory: reports: cough, dry, SOB with excertion Cardiovascular: denies: chest pain, palpitations, orthopnea, paroxysmal noc. dyspnea, edema, light headedness, other Gastrointestinal: denies: nausea, vomiting, abdominal pain, diarrhea, constipation, melena, hematochezia, other - Medication Medications: Active Medications Generic Name Dose Route Start Last Admin Trade Name Freq PRN Reason Stop Dose Admin Acetaminophen 1,000 mg 02/26/19 22:02 02/28/19 04:32 Tylenol PO 1,000 mg Q6HR PRN Administration Pain Acetaminophen 650 mg 02/26/19 22:00 02/27/19 21:29 Tylenol PO 650 mg Q4H PRN Administration Headache/Fever/Mild Pain (1-3) Apixaban 2.5 mg 02/27/19 09:00 02/28/19 21:37 Eliquis PO 2.5 mg BID ADONAY Administration Aspirin 81 mg 02/27/19 09:00 02/28/19 09:38 Ecotrin PO 81 mg DAILY ADONAY Administration Atorvastatin Calcium 80 mg 02/27/19 21:00 02/28/19 21:37 Lipitor PO 80 mg HS ADONAY Administration Budesonide 0.5 mg 02/27/19 18:30 02/28/19 18:18 Pulmicort Neb Solution INH 0.5 mg BID-RT ADONAY Administration Cholecalciferol 2,000 units 02/27/19 09:00 02/28/19 09:38 Vitamin D3 PO 2,000 units DAILY ADONAY Administration Doxycycline Hyclate 100 mg 02/27/19 21:00 02/28/19 21:37 Vibramycin PO 100 mg BID ADONAY Administration Fish Oil 2 mg 02/27/19 09:00 02/28/19 09:38 Fish Oil PO 2 mg DAILY ADONAY Administration Insulin Glargine 40 units/ 0.4 mls @ 0 mls/hr 02/27/19 21:00 02/28/19 21:37 Miscellaneous Medication SC 0.4 mls HS ADONAY Administration Cefepime HCl 0.5 gm/ Sodium 100 mls @ 200 mls/hr 02/28/19 16:00 02/28/19 15: 33 Chloride IVPB Not Given 1600 ADONAY Insulin Human Lispro 0 units 02/26/19 22:02 02/28/19 17:01 Humalog SC 5 unit .MILD SLIDING SCALE PRN Administration Mild Correctional Scale Ipratropium [place] 2.5 ml 02/27/19 10:30 02/28/19 22:14 Atrovent NEB 2.5 ml [id number] ADONAY Administration Oseltamivir Phosphate 30 mg 02/27/19 12:00 02/28/19 13:13 Tamiflu PO 03/03/19 12:01 30 mg 1200 ADONAY Administration Vitamin B Complex/Vit C/Folic Acid 1 tab 02/28/19 09:00 02/28/19 09:38 Nephro-Rodney Tablet PO 1 tab DAILY ADONAY Administration - Exam General Appearance: ill appearing Heart: no gallops, no rubs, normal peripheral pulses, irregular Respiratory: no wheezes, normal chest expansion, rales, rhonchi Gastrointestinal: non-tender, non-distended, normal bowel sounds, no guarding, no rigidity Extremities: no cyanosis Neurological: no new deficit Psychiatric: normal affect, A&O x 3 Hosp A/P - Plan Acute hypoxic resp failure requiring NIPPV Severe Sepsis due to Influenza A ESRD on HD with volume overload Acute on chronic systolic/diastolic HF Aortic stenosis Chr Afib - on Eliquis CHRISTOPHER on CPAP Obesity BMI 32.9 DM2 Type 2 [place] - POA - resolved Thrombocytopenia 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
[2019-03-01] MEDS: Ipratropium Bromide 2.5 ml Neb NEB SCH ×6 (02:23→21:33)
[2019-03-01 04:07] LABS: #Eosinphils 0.1 thou/uL (0.0-0.7); #Lymphocytes 1.9 thou/uL (1.20-3.40); #Monocytes 1.1 thou/uL (0.11-0.59); #Neutrophils 6.5 thou/uL (1.40-6.50); %Basophils 0.1 % (0.0-1.0); %Lymphocytes 19.8 % (21.0-51.0); %Monocytes 11.4 % (0.0-10.0); %Neutrophils 67.7 % (42.0-75.0); Hemoglobin 11.2 g/dL (14.0-18.0); Mean Corpuscular HGB CONC 32.4 g/dL (32.0-36.0); Mean Corpuscular Hemoglobin 33.9 pg (27.0-31.0); Mean Platelet Volume 8.3 fL (7.4-10.4); Platelet Count 117 thou/uL (130-400); RBC Distribution Width 11.9 % (11.5-14.5); White Blood Cell (WBC) Count 9.6 thou/uL (4.8-10.8)
[2019-03-01 04:23] LABS: Anion Gap 13 mmol/L (10-20); BUN (Urea Nitrogen) 57 mg/dL (8.4-25.7); Calc. Creatinine Clearance 13 mL/min (70-130); Calcium 8.3 mg/dL (7.8-10.44); Carbon Dioxide 28 mmol/L (23-31); Chloride 101 mmol/L (98-107); Estimated GFR-MDRD 9; Glucose 85 mg/dL (83-110); Potassium 3.9 mmol/L (3.5-5.1); Sodium 138 mmol/L (136-145)
--- NOTE | 2019-03-01 08:59 | PRG ---
DATE OF SERVICE: 03/01/2019 SUBJECTIVE: Mr. Rivas is in better shape today. He had no acute complaints. OBJECTIVE: VITAL SIGNS: His temperature is 98.2, pulse 85, blood pressure 120/58, and O2 saturation 99%. HEENT: Unremarkable. NECK: No JVD. CHEST: Clear anteriorly. CARDIAC: S1 and S2. Regular. ABDOMEN: Soft. EXTREMITIES: No edema. LABORATORY DATA: Sodium 138, potassium 3.9, BUN 57, creatinine 6.0, and glucose 85. White blood cell count 9.6, hematocrit 34.5, and platelet count 117. ASSESSMENT: 1. Influenza. 2. Chronic renal failure requiring hemodialysis. PLAN: 1. The patient can be transferred to the floor. Hopefully, can go home today or tomorrow. He continue his home CPAP/BiPAP at night for CHRISTOPHER. 2. I would recommend stopping his antibiotics if not already done. Job ID: [id number]
[2019-03-01] MEDS: Apixaban 2.5 MG TAB PO SCH ×2 (09:19→20:05)
[2019-03-01] MEDS: Folic Acid/Vit B Comp W-C PO SCH (09:20)
[2019-03-01] MEDS: Aspirin 81 mg Enteric Coated Tablet PO SCH (09:20)
[2019-03-01] MEDS: Acetaminophen 500 MG TAB PO PRN ×2 (09:20→20:04)
[2019-03-01] MEDS: Fish Oil 1,000 MG CAP PO SCH (09:20)
--- NOTE | 2019-03-01 09:26 | PRG ---
DATE OF SERVICE: 03/01/2019 SERVICE: Renal Medicine. SUBJECTIVE: Mr. Rivas is an 83-year-old white male with ESRD on maintenance hemodialysis. He was admitted for upper respiratory tract infection/flu. This morning, he is feeling better. He denies any chest pain or shortness of breath. OBJECTIVE: VITAL SIGNS: Blood pressure is 120/58, heart rate 88, respiratory rate 24, O2 saturations 99%, temperature 98.2. GENERAL: The patient is awake, alert, comfortable, not in overt distress. SKIN: Adequate turgor. HEENT: Pinkish conjunctivae. Anicteric sclerae. NECK: No neck mass. No carotid bruits. No JVD. CHEST: No deformities. LUNGS: Clear breath sounds. No wheezing. No crackles. HEART: Normal sinus rhythm. No murmur. No gallops. No rubs. ABDOMEN: Globular, soft, nontender. No masses. EXTREMITIES: No edema. No deformities. MEDICATIONS: Medications of March 01, 2019, were reviewed. LABORATORY DATA: Laboratories of March 01, 2019; white count 9.69, hemoglobin 11.2. Sodium 138, potassium 3.9, chloride 101, carbon dioxide 28, BUN 57, creatinine 6.04, calcium is 8.3. ASSESSMENT AND PLAN: 1. End-stage renal disease, stable. We will continue current Wednesday, Wednesday, and Wednesday hemodialysis. He is tolerating said treatment, fluid removal as tolerated. 2. Chronic anemia. There is no indication for any Epogen initiation at the present time. 3. Acute respiratory infection/flu - stabilizing and doing much better. Agree with current management. Job ID: [id number]
--- NOTE | 2019-03-01 10:34 | PQF ---
ARMIDA DILLON MALIK MD [phone] [facility]- B11 [phone] CLINICAL DOCUMENTATION IMPROVEMENT CLARIFICATION FORM: ICD-10 Updated PLEASE DO AN ADDENDUM TO THE PROGRESS NOTE WITH ANY DOCUMENTATION UPDATES OR ADDITIONS AND CARRY THROUGH TO DC SUMMARY. THANK YOU. DATE: 02/28/2019 ATTN:DR. Malou LUNSFORD Please exercise your independent, professional judgment in responding to the clarification form. Clinical indicators are provided on the bottom of this form for your review. Please check appropriate box(s): DIASTOLIC/SYSTOLIC CONGESTIVE HEART FAILURE: A. ACUITY [ ] Acute [ x ] Acute on Chronic [ ] Chronic [ ] Other diagnosis [ ] Unable to determine In addition, please specify: Present on Admission (POA): [ x ] Yes [ ] No [ ] Unable to determine For continuity of documentation, please document condition throughout progress notes and discharge summary. Thank You. CLINICAL INDICATORS - SIGNS / SYMPTOMS / LABS / RESULTS AND LOCATION IN EMR 02/26/19 BNP 467.1 02/26 ED REPORT: PT PRESENTS FOR AN INCREASE IN SOB X 2 DAYS, BREATH SOUNDS WITH WHEEZES, RESPIRATORY FINDINGS INCLUDE EFFORT LABORED, SPEAKS IN SHORT PHRASES, ASSOCIATED WITH COUGH. RESP 22-25/MIN 02/27 CONSULT (JACOB) PT WAS NOTED TO BE IN RESP DISTRESS DURING HD TODAY, HAS RESPONDED WELL TO BIPAP SO FAR. CURRENTLY RECEIVING HD IN [facility]. EXPECT THAT HE CAN COME OFF OF BIPAP AFTER HD, SINCE WORKING DIAGNOSIS IS THAT HIS RESP FAILURE IS DUE TO FLUID OVERLOAD. 02/27 CONSULT ( ALTAF ) ASSESSMENT: 2). VOLUME OVERLOAD 02/28 PN (ANNE JAMES) ASSESSMENT : 1). SHORTNESS OF BREATH SECONDARY TO SUPERIMPOSED CONGESTIVE HEART FAILUER. FLUID REMOVAL WITH DIALYSIS WAS DONE, FEELING MUCH BETTER. 02/28 PN (ALTAF) ASSESSMENT: 1). CONGESTIVE HEART FAILURE, SYSTOLIC, DIASTOLIC MIXED, IMPROVED, APPEARS TO HAVE WORSENED DUE TO THE FLUID, BUT HE IS BETTER NOW. 02/28 CXR : FINDINGS: INCREASED INTERSTITIAL MARKINGS ARE SEEN. THERE IS A SMALL STABLE LEFT PLEURAL EFFUSION. RISK: DX ESRD, SEPSIS, INFLUENZA A ( H&P/ RENEE) 02/26 TREATMENTS: SERIAL CXR (02/26-PRESENT) CARDIOLOGY CONSULT ( ALTAF/ 02/27) PULMONOLOGY CONSULT ( JACOB/ 02/27) SUPPLEMENTAL OXYGEN ( 02/26- PRESENT) THANK YOU! GEENA (This form is maintained as a part of the permanent medical record) 2014 [employer] All Rights Reserved [email or web address] [phone] [email or web address]
[2019-03-01] MEDS: Budesonide 0.5 MG/2 ML NEB INH SCH ×2 (12:41→18:01)
[2019-03-01] MEDS: Oseltamivir 6 MG/ML ORAL SUSP PO SCH (16:28)
--- NOTE | 2019-03-01 17:40 | PDOC.CPN ---
- Subjective Date: 03/01/19 Time: 16:30 Interval history: Mr. Rivas is feeling better today, sitting up on the side of the bed, eating dinner. Spouse is at the bedside. Denies any chest pain or tightness. Denies shortness of breath. No orthopnea or PND. He is ready to go home. No overnight events on telemetry, has been transferred to [place] [id number] this afternoon. Reviewed echocardiogram results. They plan to follow-up with Dr. Molina after discharge. - Review of Systems Respiratory: reports: cough - Objective Allergies/Adverse Reactions: Allergies Allergy/AdvReac Type Severity Reaction Status Date / Time No Known Allergies Allergy Verified 12/23/15 15:09 Visit Medications: Current Medications Acetaminophen (Tylenol) 1,000 mg PO Q6HR PRN PRN Reason: Pain Last Admin: 03/01/19 09:20 Dose: 1,000 mg Acetaminophen (Tylenol) 650 mg PO Q4H PRN PRN Reason: Headache/Fever/Mild Pain (1-3) Last Admin: 02/27/19 21:29 Dose: 650 mg Apixaban (Eliquis) 2.5 mg PO BID [facility] Last Admin: 03/01/19 09:19 Dose: 2.5 mg Aspirin (Ecotrin) 81 mg PO DAILY [facility] Last Admin: 03/01/19 09:20 Dose: 81 mg Atorvastatin Calcium (Lipitor) 80 mg PO HS [facility] Last Admin: 02/28/19 21:37 Dose: 80 mg Bisacodyl (Dulcolax) 10 mg PO DAILYPRN PRN PRN Reason: Constipation Budesonide (Pulmicort Neb Solution) 0.5 mg INH BID-RT [facility] Last Admin: 03/01/19 12:41 Dose: Not Given Cholecalciferol (Vitamin D3) 2,000 units PO DAILY [facility] Last Admin: 03/01/19 09:19 Dose: 2,000 units Dextrose/Water (Dextrose 50%) 25 gm SLOW IVP PRN PRN PRN Reason: Hypoglycemia Diltiazem HCl (Cardizem) 30 mg PO Q6HR PRN PRN Reason: HR >120 sustained Fish Oil (Fish Oil) 2,000 mg PO DAILY [facility] Glucagon (Glucagon) 1 mg IM PRN PRN PRN Reason: Hypoglycemia Dextrose/Water (D5w) 1,000 mls @ 0 mls/hr IV .Q0M PRN PRN Reason: Hypoglycemia Insulin Glargine 20 units/ (Miscellaneous Medication) 0.2 mls @ 0 mls/hr SC HS [facility] Insulin Human Lispro (Humalog) 0 units SC .MILD SLIDING SCALE PRN PRN Reason: Mild Correctional Scale Last Admin: 02/28/19 17:01 Dose: 5 unit Ipratropium [place] (Atrovent) 2.5 ml NEB [id number] [facility] Last Admin: 03/01/19 14:34 Dose: Not Given Miscellaneous Medication (Pharmacy To Dose) 1 each PO PRN PRN PRN Reason: Pharmacy to dose Nitroglycerin (Nitrostat) 0.4 mg PO Q5MIN PRN PRN Reason: Chest Pain Ondansetron HCl (Zofran) 4 mg IVP Q6H PRN PRN Reason: Nausea/Vomiting Oseltamivir Phosphate (Tamiflu) 30 mg PO 1200 [facility] Stop: 03/03/19 12:01 Last Admin: 03/01/19 16:28 Dose: Not Given Vitamin B Complex/Vit C/Folic Acid (Nephro-Rodney Tablet) 1 tab PO DAILY [facility] Last Admin: 03/01/19 09:20 Dose: 1 tab Vital Signs & Weight: Vital Signs Temp Pulse Resp BP Pulse Ox 03/01/19 16:14 100 03/01/19 16:00 98.4 F 90 18 138/79 100 03/01/19 08:00 99 03/01/19 07:45 98.2 F 03/01/19 07:28 88 24 H Weight 223 lb - CHADS-VASc Congestive heart failure: 1 Hypertension: 1 Age >75: 2 Diabetes mellitus: 1 Vascular disease: 1 Risk Score: 6 - Quality Measures Condition: Atrial Fibrillation/Flutter (hx or current) CV meds: Beta Nader: No, ASUNCION/ARB: No (ESRD on HD), Statin: Yes, ASA: Yes, Plavix/Effient/Brilinta: No, Anticoagulant: Yes (renal dose) - Physical Exam General: other (visual impairment) HEENT: mucus membranes moist, normocephaly Neck: supple neck, no JVD/HJR, no lymphadenopathy, JVD/HJR Cardiac: no murmur, irregularly regular, S1/S2 Lungs: clear to auscultation, normal breath sounds Neuro: grossly intact Abdomen: unremarkable Extremities: 1+ LE edema Musculoskeletal: normal range of motion - Labs Result Diagrams: 03/01/19 03:51 03/01/19 03:51 Troponin/CKMB CK-MB (CK-2) 1.9 ng/mL (0-6.6) 02/26/19 18:08 Troponin I 0.156 ng/mL (< 0.028) H 02/27/19 00:26 - EKG Interpretation EKG Method: Telemetry - Telemetry Supraventricular conduction: atrial fibrillation (rate-controlled) - Problem (1) Chronic atrial fibrillation Code(s): I48.20 - CHRONIC ATRIAL FIBRILLATION, UNSPECIFIED Assessment and Plan: Rate-controlled. On renal-dose apixaban. Continue same. 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 Mild exertional symptoms. No PND, orthopnea. Recent echocardiogram showed EF 40-45%. Add low-dose BB. (3) Aortic stenosis Code(s): I35.0 - NONRHEUMATIC AORTIC (VALVE) STENOSIS Qualifiers: Cardiac valve disease etiology: nonrheumatic Qualified Code(s): I35.0 - Nonrheumatic aortic (valve) stenosis Assessment and Plan: Echocardiogram shows moderate . Asymptomatic. (4) Mitral regurgitation Qualifiers: Cardiac valve disease etiology: nonrheumatic Qualified Code(s): I34.0 - Nonrheumatic mitral (valve) insufficiency Assessment and Plan: Mild per echocardiogram. (5) Acute respiratory failure with hypoxia Code(s): J96.01 - ACUTE RESPIRATORY FAILURE WITH HYPOXIA Assessment and Plan: Sepsis 2/2 influenza A+ (6) Influenza A Code(s): J10.1 - FLU DUE TO OTH IDENT INFLUENZA VIRUS W OTH RESP MANIFEST (7) ESRD (end stage renal disease) on dialysis Code(s): N18.6 - END STAGE RENAL DISEASE; Z99.2 - DEPENDENCE ON RENAL DIALYSIS Assessment and Plan: Continue HD. Volume status improved. - Assessment/Plan Assessment/Plan: Patient to follow-up with Dr. Molina in 10 days post-discharge.
[2019-03-01] MEDS: Atorvastatin Calcium 40 MG TAB PO SCH (20:05)
[2019-03-01] MEDS ORDERED: Insulin Glargine 20 UNITS in Pre-Filled Syringe 1 EACH SC SCH (21:00)
[2019-03-02] MEDS: Ipratropium Bromide 2.5 ml Neb NEB SCH ×4 (01:33→15:19)
[2019-03-02 05:59] LABS: #Eosinphils 0.3 thou/uL (0.0-0.7); #Lymphocytes 2.1 thou/uL (1.20-3.40); #Monocytes 0.8 thou/uL (0.11-0.59); #Neutrophils 5.2 thou/uL (1.40-6.50); %Basophils 0.1 % (0.0-1.0); %Eosinophils 3.7 % (0.0-10.0); %Lymphocytes 24.9 % (21.0-51.0); %Monocytes 9.1 % (0.0-10.0); %Neutrophils 62.2 % (42.0-75.0); Hemoglobin 12.7 g/dL (14.0-18.0); Mean Corpuscular HGB CONC 34.9 g/dL (32.0-36.0); Mean Corpuscular Hemoglobin 36.1 pg (27.0-31.0); Platelet Count 126 thou/uL (130-400); RBC Distribution Width 11.9 % (11.5-14.5); Red Blood Cell (RBC) Count 3.52 mill/uL (4.70-6.10); White Blood Cell (WBC) Count 8.3 thou/uL (4.8-10.8)
[2019-03-02 06:07] LABS: Anion Gap 15 mmol/L (10-20); BUN (Urea Nitrogen) 36 mg/dL (8.4-25.7); Calc. Creatinine Clearance 19 mL/min (70-130); Calcium 8.5 mg/dL (7.8-10.44); Carbon Dioxide 27 mmol/L (23-31); Chloride 103 mmol/L (98-107); Estimated GFR-MDRD 13; Glucose 70 mg/dL (83-110); Potassium 3.5 mmol/L (3.5-5.1); Sodium 141 mmol/L (136-145)
[2019-03-02] MEDS: Budesonide 0.5 MG/2 ML NEB INH SCH (06:59)
[2019-03-02] MEDS ORDERED: Carvedilol 3.125 MG TAB PO SCH (08:00)
[2019-03-02] MEDS: Aspirin 81 mg Enteric Coated Tablet PO SCH (08:05)
[2019-03-02] MEDS: Folic Acid/Vit B Comp W-C PO SCH (08:05)
[2019-03-02] MEDS: Apixaban 2.5 MG TAB PO SCH (08:05)
--- NOTE | 2019-03-02 08:32 | PDOC.HOSPP ---
- Subjective Encounter Date: 03/01/19 Encounter Time: 08:30 Subjective: Patient seen and examined for Sepsis in dialysis unit. SOB/cough improving. No CP or palpitations. No new complaints. No overnight events - Objective Vital Signs & Weight: Vital Signs (12 hours) Temp Pulse Resp BP Pulse Ox 03/02/19 07:19 98.2 F 87 16 148/82 H 100 03/02/19 07:01 88 16 97 03/02/19 06:59 88 16 97 03/02/19 02:52 98.3 F 76 18 108/68 99 03/02/19 01:34 94 L 03/02/19 01:33 88 16 94 L 03/02/19 00:35 93 L 03/01/19 23:11 98.6 F 81 17 117/76 98 03/01/19 21:33 91 16 92 L Weight Weight 223 lb Most Recent Monitor Data Heart Rate from ECG 88 NIBP 139/92 NIBP BP-Mean 107 Respiration from ECG 31 SpO2 98 Result Diagrams: 03/02/19 05:25 03/02/19 05:25 Additional Labs: Accuchecks 03/02/19 03/02/19 03/01/19 06:15 05:15 19:12 POC Glucose 121 H 75 193 H 03/01/19 03/01/19 16:26 10:44 POC Glucose 95 168 H EKG Reviewed by me: Yes (Tele Afib) Hospitalist ROS - Review of Systems Constitutional: denies: fever, chills, sweats, weakness, malaise, other Gastrointestinal: denies: nausea, vomiting, abdominal pain, diarrhea, constipation, melena, hematochezia, other - Medication Medications: Active Medications Generic Name Dose Route Start Last Admin Trade Name Freq PRN Reason Stop Dose Admin Acetaminophen 1,000 mg 02/26/19 22:02 03/01/19 20:04 Tylenol PO 1,000 mg Q6HR PRN Administration Pain Acetaminophen 650 mg 02/26/19 22:00 02/27/19 21:29 Tylenol PO 650 mg Q4H PRN Administration Headache/Fever/Mild Pain (1-3) Apixaban 2.5 mg 02/27/19 09:00 03/02/19 08:05 Eliquis PO 2.5 mg BID [facility] Administration Aspirin 81 mg 02/27/19 09:00 03/02/19 08:05 Ecotrin PO 81 mg DAILY [facility] Administration Atorvastatin Calcium 80 mg 02/27/19 21:00 03/01/19 20:05 Lipitor PO 80 mg HS [facility] Administration Budesonide 0.5 mg 02/27/19 18:30 03/02/19 06:59 Pulmicort Neb Solution INH 0.5 mg BID-RT [facility] Administration Carvedilol 3.125 mg 03/02/19 08:00 03/02/19 08:05 Coreg PO 3.125 mg BID-WM [facility] Administration Cholecalciferol 2,000 units 02/27/19 09:00 03/02/19 08:05 Vitamin D3 PO 2,000 units DAILY [facility] Administration Fish Oil 2,000 mg 03/02/19 09:00 03/02/19 08:04 Fish Oil PO 2,000 mg DAILY [facility] Administration Insulin Human Lispro 0 units 02/26/19 22:02 02/28/19 17:01 Humalog SC 5 unit .MILD SLIDING SCALE PRN Administration Mild Correctional Scale Ipratropium [place] 2.5 ml 02/27/19 10:30 03/02/19 07:01 Atrovent NEB 2.5 ml [id number] [facility] Administration Oseltamivir Phosphate 30 mg 02/27/19 12:00 03/01/19 16:28 Tamiflu PO 03/03/19 12:01 Not Given 1200 [facility] Vitamin B Complex/Vit C/Folic Acid 1 tab 02/28/19 09:00 03/02/19 08:05 Nephro-Rodney Tablet PO 1 tab DAILY [facility] Administration - Exam General Appearance: NAD Neck: no JVD Heart: no gallops, no rubs, murmur present Respiratory: no rales, normal chest expansion, rhonchi Gastrointestinal: non-tender, non-distended, normal bowel sounds Extremities: no cyanosis Hosp A/P - Plan Acute hypoxic resp failure requiring NIPPV Severe Sepsis due to Influenza A ESRD on HD with volume overload Acute on chronic systolic/diastolic HF Aortic stenosis Chr Afib - on Eliquis CHRISTOPHER on CPAP Obesity BMI 32.9 DM2 with hypoglycemia Type 2 IN - POA - resolved Thrombocytopenia Chronic Anemia due to renal insuff PLAN: Cont Tamiflu Atbx dced Cont Nebs Reduce Lantus to 20 HS Cont sliding scale Cont other meds AM labs Cont NIPPV HS
[2019-03-02] MEDS ORDERED: Fish Oil 1,000 MG CAP PO SCH (09:00)
--- NOTE | 2019-03-02 09:16 | PRG ---
DATE OF SERVICE: 03/02/2019 SUBJECTIVE: Mr. Rivas is doing well. He had no acute complaints today, slept with his own autoSV BiPAP last night. OBJECTIVE: VITAL SIGNS: His temperature is 98.2, pulse is 87, respirations 16, O2 saturation 100%, and blood pressure 148/82. HEENT: Unremarkable. NECK: No adenopathy or JVD. LUNGS: Few end-expiratory wheezes. CARDIAC: S1, S2. Irregularly irregular. ABDOMEN: Soft. EXTREMITIES: No edema. LABORATORY DATA: White blood cell count 8.3, hematocrit 36.5, and platelet count 126. Sodium 141, potassium 3.5, BUN 36, creatinine 4.4, glucose 70. ASSESSMENT: 1. Influenza. 2. Status post respiratory failure requiring BiPAP. PLAN: The patient seems stable from a pulmonary standpoint and can be discharged home as far as I am concerned. Follow up with his primary care doctor. Job ID: [id number]
[2019-03-02] MEDS: Oseltamivir 6 MG/ML ORAL SUSP PO SCH (12:23)
[2019-03-02 16:26] VITALS: BP 111/70; TEMP 98.4
[2019-03-02] MEDS ORDERED: Insulin Glargine 10 UNITS in Pre-Filled Syringe 1 EACH SC SCH (21:00)
--- NOTE | 2019-03-03 07:52 | DIS ---
DATE OF ADMISSION: 02/26/2019 DATE OF DISCHARGE: 03/02/2019 DISCHARGE DISPOSITION: Home. The patient declined home health care. DISCHARGE MEDICATIONS: Tamiflu 30 mg after dialysis for next 3 days. All other home medications were left unchanged. The patient was seen and examined on the day of discharge. Denies any new complaints. No chest pain, shortness of breath, or palpitations reported. BRIEF HOSPITAL COURSE: The patient is an 83-year-old male with end-stage renal disease, on hemodialysis; chronic atrial fibrillation, on anticoagulation; diabetes mellitus, type 2; and congestive heart failure, presented to the hospital on February 26, 2019, with generalized weakness along with cough. He was initially admitted as a 23-hour observation. His symptoms progressively got worse overnight. He was extremely hypoxic, requiring noninvasive positive pressure ventilation. He was transferred to intermediate care unit for noninvasive positive-pressure ventilation. His symptoms gradually improved after hemodialysis as well as initiation of Tamiflu. He was positive for influenza A. He was evaluated by Cardiology as well as Pulmonary during this hospital stay. His maximum temperature this admission was 101.5. However, over the last 48 hours, the patient has been afebrile with a maximum temperature of 99.6. He has been cleared by consultants for discharge. He declined home health care. FINAL DIAGNOSES: 1. Acute hypoxic respiratory failure, requiring noninvasive positive pressure ventilation. 2. Severe sepsis due to influenza A. 3. End-stage renal disease, on hemodialysis with volume overload. 4. Acute on chronic systolic/diastolic heart failure exacerbation, improved. He is not on ASUNCION inhibitor, ARB, or Aldactone due to renal insufficiency. He is also not on beta-blockers per primary cardiology clinical consultant. 5. Aortic stenosis. 6. Chronic atrial fibrillation, on anticoagulation. 7. Obesity with a BMI of 32.9. 8. Diabetes mellitus, type 2 with hypoglycemic episode despite giving him low-dose insulin, resolved. 9. Type 2 myocardial infarction, present on admission, resolved. 10. Thrombocytopenia, improving. 11. Chronic anemia due to renal insufficiency. Job ID: [id number]
== END 2019-03-02 16:36 | disposition home or self-care (01) | DRG 871 ==
LOC: ERS 17:36 → OBSVTOIN 21:08 → 2SW 21:08 → IMCU/EMU 02-27 10:16 → T4-B 03-01 13:36
PROVIDERS: ADMIT Internal Medicine; ATTEND Internal Medicine
DX: A41.89 Other specified sepsis (principal); N18.6 End stage renal disease; J96.01 Acute respiratory failure with hypoxia; I21.A1 Myocardial infarction type 2; I50.43 Acute on chronic combined systolic (congestive) and diastolic (congestive) heart failure; I13.2 Hypertensive heart and chronic kidney disease with heart failure and with stage 5 chronic kidney disease, or end stage renal disease; I48.20 Chronic atrial fibrillation, unspecified; E11.22 Type 2 diabetes mellitus with diabetic chronic kidney disease; E11.40 Type 2 diabetes mellitus with diabetic neuropathy, unspecified; E03.9 Hypothyroidism, unspecified; D69.6 Thrombocytopenia, unspecified; D63.1 Anemia in chronic kidney disease; J10.1 Influenza due to other identified influenza virus with other respiratory manifestations; G47.33 Obstructive sleep apnea (adult) (pediatric); I25.10 Atherosclerotic heart disease of native coronary artery without angina pectoris; R65.20 Severe sepsis without septic shock; E66.9 Obesity, unspecified; Z68.32 Body mass index [BMI] 32.0-32.9, adult; Z99.2 Dependence on renal dialysis; Z79.01 Long term (current) use of anticoagulants; Z86.73 Personal history of transient ischemic attack (TIA), and cerebral infarction without residual deficits; Z79.4 Long term (current) use of insulin
CPT/HCPCS: 36415; 36416; 71045; 80048; 80053; 81003; 81015; 82553; 82805; 83605; 83735; 83880; 84484; 85025; 87040; 87804; 90935; 93005; 93306; 93798; 94640; 94660; 96360; G0257; J0692; J1815; J3490; J7620; J7626

== ENCOUNTER 2020-10-27 18:29 | Inpatient (IN) | payer MEDICARE, OTHER ==
[2020-10-27 19:02] LABS: #Basophils 0.1 thou/uL (0.0-0.2); #Eosinphils 0.2 thou/uL (0.0-0.7); #Lymphocytes 3.2 thou/uL (1.20-3.40); #Monocytes 1.1 thou/uL (0.11-0.59); %Eosinophils 1.8 % (0.0-10.0); %Lymphocytes 30.1 % (21.0-51.0); %Monocytes 10.7 % (0.0-10.0); %Neutrophils 56.4 % (42.0-75.0); Hemoglobin 13.6 g/dL (14.0-18.0); Mean Corpuscular HGB CONC 34.2 g/dL (32.0-36.0); Mean Corpuscular Hemoglobin 35.7 pg (27.0-31.0); Mean Platelet Volume 8.2 fL (7.4-10.4); Platelet Count 153 thou/uL (130-400); RBC Distribution Width 13.2 % (11.5-14.5); White Blood Cell (WBC) Count 10.6 thou/uL (4.8-10.8)
[2020-10-27 19:23] LABS: ALT (SGPT) 21 U/L (8-55); AST (SGOT) 25 U/L (5-34); Albumin 4.1 g/dL (3.4-4.8); Alkaline Phosphatase 126 U/L (40-110); Anion Gap 18 mmol/L (10-20); BUN (Urea Nitrogen) 54 mg/dL (8.4-25.7); Bilirubin, Total 0.5 mg/dL (0.2-1.2); CK (CPK) 60 U/L (30-200); Calc. Creatinine Clearance 0 mL/min (70-130); Calcium 9.5 mg/dL (7.8-10.44); Carbon Dioxide 27 mmol/L (23-31); Chloride 97 mmol/L (98-107); Globulin 3.7 g/dL (2.4-3.5); Glucose 160 mg/dL (83-110); Lipase 21 U/L (8-78); Potassium 3.8 mmol/L (3.5-5.1); Protein, Total 7.8 g/dL (5.8-8.1); Sodium 138 mmol/L (136-145)
[2020-10-27] MEDS ORDERED: Albuterol 200 PUFF (6.7GM INHALER) ONE (19:25)
[2020-10-27 19:45] LABS: CKMB 2.2 ng/mL (0-6.6)
[2020-10-27 22:57] LABS: Troponin I 0.143 ng/mL (< 0.028)
[2020-10-27] MEDS ORDERED: Ondansetron PF 4 MG/2 ML Vial IVP PRN ×2 (23:30→23:52)
[2020-10-27] MEDS ORDERED: Acetaminophen 325 MG TAB PO PRN ×2 (23:30→23:52)
[2020-10-27] MEDS ORDERED: Ondansetron ODT 4 MG TAB SL PRN (23:30)
[2020-10-28 00:01] VITALS: BMI 33.3
[2020-10-28] MEDS: Melatonin 3 MG TAB PO PRN ×2 (00:16→22:15)
[2020-10-28] MEDS ORDERED: hydrALAZINE 20 MG/ML VIAL SLOW IVP PRN (00:48)
[2020-10-28] MEDS ORDERED: Dextrose 50% Abboject 50 ML SYRINGE SLOW IVP PRN (00:52)
[2020-10-28] MEDS ORDERED: Dextrose 5% in Water 1,000 ML IV PRN (00:52)
[2020-10-28] MEDS ORDERED: HumaLOG 300 UNITS/3 ML VIAL SC PRN (00:52)
[2020-10-28 01:48] LABS: Troponin I 0.301 ng/mL (< 0.028)
[2020-10-28 04:03] LABS: #Eosinphils 0.1 thou/uL (0.0-0.7); #Lymphocytes 1.7 thou/uL (1.20-3.40); #Monocytes 1.2 thou/uL (0.11-0.59); #Neutrophils 8.8 thou/uL (1.40-6.50); %Basophils 0.2 % (0.0-1.0); %Eosinophils 0.5 % (0.0-10.0); %Lymphocytes 14.1 % (21.0-51.0); %Monocytes 10.2 % (0.0-10.0); Hemoglobin 12.5 g/dL (14.0-18.0); Mean Corpuscular HGB CONC 33.3 g/dL (32.0-36.0); Mean Corpuscular Hemoglobin 34.6 pg (27.0-31.0); Mean Platelet Volume 8.4 fL (7.4-10.4); Platelet Count 130 thou/uL (130-400); RBC Distribution Width 12.9 % (11.5-14.5); Red Blood Cell (RBC) Count 3.62 mill/uL (4.70-6.10); White Blood Cell (WBC) Count 11.7 thou/uL (4.8-10.8)
[2020-10-28 04:24] LABS: Anion Gap 13 mmol/L (10-20); BUN (Urea Nitrogen) 32 mg/dL (8.4-25.7); Calc. Creatinine Clearance 18 mL/min (70-130); Calcium 8.9 mg/dL (7.8-10.44); Carbon Dioxide 28 mmol/L (23-31); Chloride 100 mmol/L (98-107); Glucose 145 mg/dL (83-110); Magnesium 2.1 mg/dL (1.6-2.6); Potassium 4.1 mmol/L (3.5-5.1); Sodium 137 mmol/L (136-145)
[2020-10-28 04:34] LABS: Troponin I 0.402 ng/mL (< 0.028)
[2020-10-28 08:36] LABS: Troponin I 0.569 ng/mL (< 0.028)
[2020-10-28] MEDS ORDERED: Aspirin 325 MG TAB PO SCH (09:00)
[2020-10-28] MEDS: Apixaban 2.5 MG TAB PO SCH ×2 (09:07→22:15)
[2020-10-28] MEDS: Famotidine 20 MG TAB PO SCH (09:07)
[2020-10-28 13:16] LABS: SARS-CoV-2 PCR by NAA Not Detected (NotDetected)
[2020-10-29 04:36] LABS: #Eosinphils 0.1 thou/uL (0.0-0.7); #Lymphocytes 1.6 thou/uL (1.20-3.40); #Neutrophils 4.8 thou/uL (1.40-6.50); %Basophils 0.6 % (0.0-1.0); %Eosinophils 1.6 % (0.0-10.0); %Lymphocytes 21.3 % (21.0-51.0); %Monocytes 13.4 % (0.0-10.0); %Neutrophils 63.1 % (42.0-75.0); Mean Corpuscular HGB CONC 33.7 g/dL (32.0-36.0); Platelet Count 113 thou/uL (130-400); RBC Distribution Width 13.1 % (11.5-14.5); Red Blood Cell (RBC) Count 3.43 mill/uL (4.70-6.10); White Blood Cell (WBC) Count 7.5 thou/uL (4.8-10.8)
[2020-10-29 04:52] LABS: Anion Gap 17 mmol/L (10-20); BUN (Urea Nitrogen) 32 mg/dL (8.4-25.7); Calc. Creatinine Clearance 16 mL/min (70-130); Calcium 8.6 mg/dL (7.8-10.44); Carbon Dioxide 28 mmol/L (23-31); Chloride 97 mmol/L (98-107); Glucose 327 mg/dL (83-110); Magnesium 2.2 mg/dL (1.6-2.6); Potassium 4.1 mmol/L (3.5-5.1); Sodium 138 mmol/L (136-145)
[2020-10-29] MEDS: HumaLOG 300 UNITS/3 ML VIAL SC PRN ×2 (06:26→10:49)
[2020-10-29 08:24] VITALS: TEMP 97.7
[2020-10-29] MEDS: Apixaban 2.5 MG TAB PO SCH (09:14)
[2020-10-29] MEDS: Famotidine 20 MG TAB PO SCH (09:14)
== END 2020-10-29 12:20 | disposition home or self-care (01) | DRG 291 ==
LOC: ERS 18:29 → IMCU/EMU 21:53 → OBSVTOIN 23:26
PROVIDERS: ADMIT Internal Medicine; ATTEND Internal Medicine
PROC: 5A09357 Assistance with Respiratory Ventilation, Less than 24 Consecutive Hours, Continuous Positive Airway Pressure (ICD-10-PCS; principal; 2020-10-27)
PROC: 5A1D70Z Performance of Urinary Filtration, Intermittent, Less than 6 Hours Per Day (ICD-10-PCS; 2020-10-28)
DX: I13.2 Hypertensive heart and chronic kidney disease with heart failure and with stage 5 chronic kidney disease, or end stage renal disease (principal); I50.43 Acute on chronic combined systolic (congestive) and diastolic (congestive) heart failure; J96.01 Acute respiratory failure with hypoxia; I48.20 Chronic atrial fibrillation, unspecified; Z20.822 Contact with and (suspected) exposure to COVID-19; I35.0 Nonrheumatic aortic (valve) stenosis; D63.1 Anemia in chronic kidney disease; R79.89 Other specified abnormal findings of blood chemistry; I49.3 Ventricular premature depolarization; G47.33 Obstructive sleep apnea (adult) (pediatric); I25.10 Atherosclerotic heart disease of native coronary artery without angina pectoris; E11.51 Type 2 diabetes mellitus with diabetic peripheral angiopathy without gangrene; E11.22 Type 2 diabetes mellitus with diabetic chronic kidney disease; E78.00 Pure hypercholesterolemia, unspecified; Z95.1 Presence of aortocoronary bypass graft; Z95.5 Presence of coronary angioplasty implant and graft; Z79.01 Long term (current) use of anticoagulants; Z79.82 Long term (current) use of aspirin; Z79.4 Long term (current) use of insulin; Z79.899 Other long term (current) drug therapy; Z80.9 Family history of malignant neoplasm, unspecified; I69.998 Other sequelae following unspecified cerebrovascular disease; Z99.2 Dependence on renal dialysis
CPT/HCPCS: 36415; 36416; 71045; 80048; 80053; 82550; 82553; 83605; 83690; 83735; 83880; 84484; 85025; 90935; 93005; 93306; 94640; 94660; 94760; G0257; G0378; J1815; J7620; U0003; U0005

== ENCOUNTER 2021-03-09 18:15 | Inpatient (IN) | payer MEDICARE, OTHER ==
[2021-03-09 19:04] LABS: #Eosinphils 0.1 thou/uL (0.0-0.7); #Lymphocytes 2.1 thou/uL (1.20-3.40); #Neutrophils 6.4 thou/uL (1.40-6.50); %Basophils 0.2 % (0.0-1.0); %Eosinophils 1.6 % (0.0-10.0); %Lymphocytes 21.9 % (21.0-51.0); %Neutrophils 66.4 % (42.0-75.0); Hemoglobin 13.1 g/dL (14.0-18.0); Mean Corpuscular HGB CONC 32.3 g/dL (32.0-36.0); Mean Corpuscular Hemoglobin 35.4 pg (27.0-31.0); Mean Platelet Volume 7.9 fL (7.4-10.4); Platelet Count 184 thou/uL (130-400); RBC Distribution Width 12.5 % (11.5-14.5); Red Blood Cell (RBC) Count 3.71 mill/uL (4.70-6.10); White Blood Cell (WBC) Count 9.6 thou/uL (4.8-10.8)
[2021-03-09 19:07] LABS: MDiff Complete? YES; Macrocytosis SLIGHT = 6-15 cells (100X) (0-5/hpf); Platelet Morphology Comment Appears Adequate; Polychromasia SLIGHT = 2-3 cells (100X) (0-2/hpf)
[2021-03-09 19:08] LABS: ALT (SGPT) 24 U/L (8-55); AST (SGOT) 26 U/L (5-34); Albumin 4.1 g/dL (3.4-4.8); Alkaline Phosphatase 171 U/L (40-110); Anion Gap 20 mmol/L (10-20); BUN (Urea Nitrogen) 66 mg/dL (8.4-25.7); Bilirubin, Total 0.5 mg/dL (0.2-1.2); Calc. Creatinine Clearance 0 mL/min (70-130); Calcium 9.3 mg/dL (7.8-10.44); Carbon Dioxide 23 mmol/L (23-31); Chloride 98 mmol/L (98-107); Globulin 4.3 g/dL (2.4-3.5); Glucose 189 mg/dL (83-110); Lipase 35 U/L (8-78); Potassium 4.4 mmol/L (3.5-5.1); Protein, Total 8.4 g/dL (5.8-8.1); Sodium 137 mmol/L (136-145)
[2021-03-09 19:29] LABS: CKMB 2.4 ng/mL (0-6.6)
[2021-03-09] MEDS ORDERED: Nitroglycerin 0.4 MG TAB 1 EACH ONE (21:19)
[2021-03-09] MEDS ORDERED: Ondansetron PF 4 MG/2 ML Vial IVP PRN (21:55)
[2021-03-09] MEDS ORDERED: Acetaminophen 650 MG Suppository PR PRN (21:55)
[2021-03-09] MEDS ORDERED: Acetaminophen 325 MG TAB PO PRN (21:55)
[2021-03-09] MEDS ORDERED: Ondansetron ODT 4 MG TAB PO PRN (21:55)
[2021-03-09 21:59] LABS: SARS-CoV-2 NAA Rapid Test Not Detected (NotDetected)
[2021-03-09 22:56] LABS: Troponin I 0.133 ng/mL (< 0.028)
[2021-03-10 01:39] VITALS: BMI 30.7
[2021-03-10 01:48] LABS: Troponin I 0.223 ng/mL (< 0.028)
[2021-03-10] MEDS ORDERED: Dextrose 5% in Water 1,000 ML IV PRN (03:27)
[2021-03-10] MEDS ORDERED: Dextrose 50% Abboject 50 ML SYRINGE SLOW IVP PRN (03:27)
[2021-03-10] MEDS ORDERED: HumaLOG 300 UNITS/3 ML VIAL SC PRN ×2 (03:27)
[2021-03-10 06:25] LABS: #Eosinphils 0.2 thou/uL (0.0-0.7); #Lymphocytes 2.2 thou/uL (1.20-3.40); #Neutrophils 5.3 thou/uL (1.40-6.50); %Basophils 0.5 % (0.0-1.0); %Eosinophils 1.8 % (0.0-10.0); %Lymphocytes 25.3 % (21.0-51.0); %Monocytes 11.2 % (0.0-10.0); %Neutrophils 61.2 % (42.0-75.0); Hemoglobin 11.6 g/dL (14.0-18.0); Mean Corpuscular HGB CONC 33.2 g/dL (32.0-36.0); Mean Corpuscular Hemoglobin 36.1 pg (27.0-31.0); Mean Platelet Volume 8.1 fL (7.4-10.4); Platelet Count 166 thou/uL (130-400); RBC Distribution Width 12.4 % (11.5-14.5); Red Blood Cell (RBC) Count 3.23 mill/uL (4.70-6.10); White Blood Cell (WBC) Count 8.6 thou/uL (4.8-10.8)
[2021-03-10 06:44] LABS: Anion Gap 15 mmol/L (10-20); BUN (Urea Nitrogen) 68 mg/dL (8.4-25.7); Calc. Creatinine Clearance 12 mL/min (70-130); Carbon Dioxide 28 mmol/L (23-31); Chloride 103 mmol/L (98-107); Glucose 80 mg/dL (83-110); Potassium 4.5 mmol/L (3.5-5.1); Sodium 141 mmol/L (136-145)
[2021-03-10] MEDS ORDERED: Heparin 5,000 UNITS/ML VIAL SC SCH (09:00)
[2021-03-10 09:21] LABS: Troponin I 0.312 ng/mL (< 0.028)
[2021-03-10] MEDS ORDERED: Temazepam 15 MG CAP PO PRN (12:51)
[2021-03-10] MEDS ORDERED: Docusate 100 MG CAP PO SCH (13:00)
[2021-03-10 14:19] LABS: HBSAg Index 0.27 S/CO (0-0.99); Hep B Surf Ag Non-Reactive S/CO (NonReactive)
[2021-03-10 14:25] LABS: HBSAB Concentration 70.96 mIU/mL; Hep B Surf AB Reactive (NonReactive)
[2021-03-10] MEDS ORDERED: Carvedilol 3.125 MG TAB PO SCH (17:00)
[2021-03-10] MEDS ORDERED: Lantus 1000 UNITS/10 ML VIAL SC SCH (18:00)
[2021-03-10] MEDS: Docusate 100 MG CAP PO SCH ×2 (20:28→20:31)
[2021-03-10] MEDS ORDERED: Apixaban 2.5 MG TAB PO SCH (21:00)
[2021-03-10] MEDS ORDERED: Atorvastatin Calcium 20 MG TAB PO SCH (21:00)
[2021-03-11 05:56] LABS: #Eosinphils 0.2 thou/uL (0.0-0.7); #Lymphocytes 1.9 thou/uL (1.20-3.40); #Neutrophils 5.1 thou/uL (1.40-6.50); %Basophils 0.5 % (0.0-1.0); %Eosinophils 2.1 % (0.0-10.0); %Lymphocytes 22.9 % (21.0-51.0); %Monocytes 11.8 % (0.0-10.0); %Neutrophils 62.7 % (42.0-75.0); Hemoglobin 12.4 g/dL (14.0-18.0); Mean Corpuscular HGB CONC 33.8 g/dL (32.0-36.0); Mean Corpuscular Hemoglobin 36.3 pg (27.0-31.0); Mean Platelet Volume 8.2 fL (7.4-10.4); Platelet Count 146 thou/uL (130-400); RBC Distribution Width 12.3 % (11.5-14.5); Red Blood Cell (RBC) Count 3.42 mill/uL (4.70-6.10); White Blood Cell (WBC) Count 8.1 thou/uL (4.8-10.8)
[2021-03-11] MEDS ORDERED: Levothyroxine Sodium 50 MCG TAB PO SCH (06:00)
[2021-03-11 06:10] LABS: Anion Gap 14 mmol/L (10-20); BUN (Urea Nitrogen) 34 mg/dL (8.4-25.7); Calc. Creatinine Clearance 17 mL/min (70-130); Calcium 8.8 mg/dL (7.8-10.44); Carbon Dioxide 28 mmol/L (23-31); Chloride 101 mmol/L (98-107); Glucose 77 mg/dL (83-110); Potassium 3.9 mmol/L (3.5-5.1); Sodium 139 mmol/L (136-145)
[2021-03-11] MEDS ORDERED: Folic Acid 1 MG TAB PO SCH (09:00)
[2021-03-11] MEDS ORDERED: Aspirin 81 mg Enteric Coated Tablet PO SCH (09:00)
[2021-03-11] MEDS: Docusate 100 MG CAP PO SCH (09:28)
[2021-03-11 16:20] VITALS: BP 146/66; TEMP 98.2
== END 2021-03-11 18:00 | disposition home or self-care (01) | DRG 280 ==
LOC: ERS 18:15 → OBSVTOIN 20:09 → ERHOLD 20:09 → NEURO 20:25
PROVIDERS: ADMIT Student in an Organized Health Care Education/Training Program; ATTEND Internal Medicine
PROC: 5A1D70Z Performance of Urinary Filtration, Intermittent, Less than 6 Hours Per Day (ICD-10-PCS; principal; 2021-03-10)
DX: I13.2 Hypertensive heart and chronic kidney disease with heart failure and with stage 5 chronic kidney disease, or end stage renal disease (principal); N18.6 End stage renal disease; I21.A1 Myocardial infarction type 2; I50.43 Acute on chronic combined systolic (congestive) and diastolic (congestive) heart failure; I48.20 Chronic atrial fibrillation, unspecified; Z20.822 Contact with and (suspected) exposure to COVID-19; I25.10 Atherosclerotic heart disease of native coronary artery without angina pectoris; H54.8 Legal blindness, as defined in USA; G47.33 Obstructive sleep apnea (adult) (pediatric); I48.91 Unspecified atrial fibrillation; E78.00 Pure hypercholesterolemia, unspecified; E11.22 Type 2 diabetes mellitus with diabetic chronic kidney disease; G47.00 Insomnia, unspecified; E03.9 Hypothyroidism, unspecified; Z79.82 Long term (current) use of aspirin; Z79.01 Long term (current) use of anticoagulants; Z79.4 Long term (current) use of insulin; Z79.899 Other long term (current) drug therapy; Z99.2 Dependence on renal dialysis; Z95.1 Presence of aortocoronary bypass graft; Z99.89 Dependence on other enabling machines and devices; Z79.890 Hormone replacement therapy
CPT/HCPCS: 36415; 36416; 71045; 80048; 80053; 82553; 83690; 83880; 84484; 85025; 86706; 87340; 90935; 93005; 93306; G0257; J1815; U0002

== ENCOUNTER 2021-08-15 20:59 | Emergency (ER) | payer MEDICARE, OTHER ==
[2021-08-15 22:09] LABS: #Eosinphils 0.2 thou/uL (0.0-0.7); #Lymphocytes 1.4 thou/uL (1.20-3.40); #Monocytes 0.7 thou/uL (0.11-0.59); #Neutrophils 3.5 thou/uL (1.40-6.50); %Basophils 0.4 % (0.0-1.0); %Eosinophils 2.8 % (0.0-10.0); %Lymphocytes 24.3 % (21.0-51.0); %Monocytes 12.7 % (0.0-10.0); %Neutrophils 59.8 % (42.0-75.0); Hemoglobin 12.4 g/dL (14.0-18.0); Mean Corpuscular HGB CONC 32.5 g/dL (32.0-36.0); Mean Platelet Volume 8.2 fL (7.4-10.4); Platelet Count 139 thou/uL (130-400); RBC Distribution Width 14.6 % (11.5-14.5); Red Blood Cell (RBC) Count 3.35 mill/uL (4.70-6.10); White Blood Cell (WBC) Count 5.9 thou/uL (4.8-10.8)
[2021-08-15 23:06] LABS: ALT (SGPT) 28 U/L (8-55); AST (SGOT) 38 U/L (5-34); Albumin 3.7 g/dL (3.4-4.8); Alkaline Phosphatase 243 U/L (40-110); Anion Gap 16 mmol/L (10-20); BUN (Urea Nitrogen) 28 mg/dL (8.4-25.7); Bilirubin, Total 0.7 mg/dL (0.2-1.2); Calc. Creatinine Clearance 0 mL/min (70-130); Carbon Dioxide 31 mmol/L (23-31); Chloride 93 mmol/L (98-107); Estimated GFR 14; Globulin 4.3 g/dL (2.4-3.5); Glucose 410 mg/dL (83-110); Potassium 4.1 mmol/L (3.5-5.1); Sodium 136 mmol/L (136-145)
[2021-08-15 23:26] LABS: CKMB 1.9 ng/mL (0-6.6)
== END 2021-08-16 00:04 | disposition home or self-care (01) ==
LOC: ERS 20:59
DX: J81.1 Chronic pulmonary edema (principal); I12.9 Hypertensive chronic kidney disease with stage 1 through stage 4 chronic kidney disease, or unspecified chronic kidney disease; E11.22 Type 2 diabetes mellitus with diabetic chronic kidney disease; N18.9 Chronic kidney disease, unspecified; Z79.899 Other long term (current) drug therapy; Z79.4 Long term (current) use of insulin
CPT/HCPCS: 71045; 80053; 82553; 83880; 84484; 85025; 93005

== ENCOUNTER 2021-09-02 05:09 | Emergency (ER) | payer MEDICARE, OTHER ==
[2021-09-02 06:15] LABS: #Eosinphils 0.2 thou/uL (0.0-0.7); #Lymphocytes 2.2 thou/uL (1.20-3.40); #Monocytes 0.9 thou/uL (0.11-0.59); #Neutrophils 3.6 thou/uL (1.40-6.50); %Basophils 0.6 % (0.0-1.0); %Lymphocytes 31.8 % (21.0-51.0); %Monocytes 12.6 % (0.0-10.0); %Neutrophils 52.1 % (42.0-75.0); Hemoglobin 12.7 g/dL (14.0-18.0); Mean Corpuscular HGB CONC 32.1 g/dL (32.0-36.0); Mean Corpuscular Hemoglobin 36.7 pg (27.0-31.0); Mean Platelet Volume 8.7 fL (7.4-10.4); Platelet Count 143 thou/uL (130-400); RBC Distribution Width 13.9 % (11.5-14.5); Red Blood Cell (RBC) Count 3.47 mill/uL (4.70-6.10); White Blood Cell (WBC) Count 6.8 thou/uL (4.8-10.8)
[2021-09-02] MEDS ORDERED: Lorazepam 1 MG TAB ONE (06:26)
[2021-09-02] MEDS ORDERED: Ondansetron ODT 8 MG TAB ONE (06:26)
[2021-09-02 06:30] LABS: ALT (SGPT) 27 U/L (8-55); AST (SGOT) 27 U/L (5-34); Albumin 3.8 g/dL (3.4-4.8); Alkaline Phosphatase 243 U/L (40-110); Anion Gap 17 mmol/L (10-20); BUN (Urea Nitrogen) 34 mg/dL (8.4-25.7); Bilirubin, Total 0.8 mg/dL (0.2-1.2); Calc. Creatinine Clearance 0 mL/min (70-130); Calcium 9.1 mg/dL (7.8-10.44); Carbon Dioxide 32 mmol/L (23-31); Chloride 98 mmol/L (98-107); Estimated GFR 11; Globulin 3.9 g/dL (2.4-3.5); Glucose 91 mg/dL (83-110); Potassium 3.8 mmol/L (3.5-5.1); Protein, Total 7.7 g/dL (5.8-8.1); Sodium 143 mmol/L (136-145)
[2021-09-02 06:51] LABS: CKMB 1.9 ng/mL (0-6.6)
[2021-09-02 10:55] LABS: Troponin I 0.175 ng/mL (< 0.028)
== END 2021-09-02 13:04 | disposition home or self-care (01) ==
LOC: ERS 05:09
DX: E87.70 Fluid overload, unspecified (principal); Z79.899 Other long term (current) drug therapy; Z79.01 Long term (current) use of anticoagulants; Z79.82 Long term (current) use of aspirin; Z79.4 Long term (current) use of insulin; I48.91 Unspecified atrial fibrillation; G47.30 Sleep apnea, unspecified; I25.10 Atherosclerotic heart disease of native coronary artery without angina pectoris; I10 Essential (primary) hypertension; E11.9 Type 2 diabetes mellitus without complications; E78.00 Pure hypercholesterolemia, unspecified
CPT/HCPCS: 36415; 71045; 80053; 82553; 83880; 84484; 85025; 93005; Q0162

== ENCOUNTER 2021-09-21 20:43 | Emergency (ER) | payer MEDICARE, OTHER | END 2021-09-21 20:49 | disposition E | LOC: ERS 20:43 | DX: I46.9 Cardiac arrest, cause unspecified (principal) | CPT/HCPCS: 99285 ==